=== PATIENT | female | born 1960 | race Caucasian/White ===

== ENCOUNTER 2020-01-13 09:42 | Outpatient (REF) | payer OTHER, SELFPAY ==
--- NOTE | 2020-01-13 11:35 | XR_ITS ---
EXAMINATION: XR THORACIC SPINE CLINICAL INFORMATION: Pain in the thoracic spine COMPARISON: Cervical spine x-rays of 10/13/2019 TECHNIQUE: 3 views of the thoracic spine were obtained. FINDINGS: Vertebral body heights and alignment are maintained. Mild narrowing of the multiple intervertebral disc spaces is noted in the mid to lower thoracic spine with the small anterior endplate hypertrophic osteophytes. The posterior elements appear intact. No evidence of suspicious lytic or blastic osseous lesions. Paraspinous soft tissues appear unremarkable. Visualized lungs are clear. Cardiomediastinal silhouette is normal. IMPRESSION: Mild mid and lower thoracic spondylosis. No evidence of acute compression fracture or suspicious osseous lesion.
[2020-01-13 11:55] LABS: MANUAL DIFF FLAG NO
[2020-01-13 12:06] LABS: Basophils Percent Auto 0.4 % (0-2); Eosinophils Absolute Auto 0.2 X10*3/uL (0.0-0.4); Eosinophils Percent Auto 1.9 % (0-4); Hematocrit 38.3 % (37-47); Hemoglobin 11.8 g/dl (12.0-16.0); Imm Gran Abs Auto 0.04 X10*3/uL (0.00-0.03); Imm Gran Pct Auto 0.4 % (0.0-0.4); Lymphocytes Absolute Auto 1.5 X10*3/uL (1.2-4.9); Lymphocytes Percent Auto 16.4 % (20-40); Mean Corpuscular HGB Conc 30.8 g/dl (31.0-35.0); Mean Corpuscular Hemoglobin 29.2 pg (27.0-33.0); Mean Corpuscular Volume 94.8 fL (80-98); Mean Platelet Volume 10.7 fL (9.4-12.3); Monocytes Absolute Auto 0.5 X10*3/uL (0.1-1.2); Monocytes Percent Auto 5.4 % (2-11); Neutrophils Absolute Auto 7.1 X10*3/uL (2.0-8.3); Neutrophils Percent Auto 75.5 % (45-73); Platelet Count 263 X10*3/uL (160-400); Red Blood Count 4.04 X10*6/uL (4.20-5.50); Red Cell Distribution Width 13.7 % (11.0-16.0); White Blood Count 9.3 X10*3/uL (4.8-10.8)
[2020-01-13 12:32] LABS: Alanine Aminotransferase 22 U/L (0-31); Albumin Level 4.4 g/dL (3.5-5.0); Alkaline Phosphatase 95 U/L (39-117); Anion Gap 16 (12-20); Aspartate Amino Transferase 25 U/L (5-31); Bilirubin Total 0.3 mg/dL (0.0-1.0); Blood Urea Nitrogen 14 mg/dL (9-16); Calcium 9.6 mg/dL (8.4-10.2); Carbon Dioxide 28 mmol/L (22-29); Chloride 108 mmol/L (96-108); Estimated Glomerular Filt Rate > 60; Glucose Random 94 mg/dL (60-115); Potassium 5.1 mmol/l (3.3-5.1); Sodium 147 mmol/L (135-145); Total Protein 7.3 g/dL (6.5-8.0)
[2020-01-13 13:10] LABS: Erythrocyte Sedimentation Rate 18 MM/HR (0-20)
== END 2020-01-13 09:43 | disposition home or self-care (01) ==
LOC: HO.LAB 09:42
PROVIDERS: PCP Family Medicine; Referring Provider Family Medicine; Visit Provider Student in an Organized Health Care Education/Training Program
DX: M05.9 Rheumatoid arthritis with rheumatoid factor, unspecified (principal); M54.6 Pain in thoracic spine; Z79.899 Other long term (current) drug therapy
CPT/HCPCS: 36415; 72072; 80053; 85025; 85652; 86140; 99214

== ENCOUNTER → 2020-04-15 11:02 | Outpatient (BNVA) | payer OTHER, SELFPAY | PROVIDERS: PCP Family Medicine; Referring Provider Family Medicine; Visit Provider Student in an Organized Health Care Education/Training Program | DX: Z13.89 Encounter for screening for other disorder (principal) | CPT/HCPCS: 99212 ==

== ENCOUNTER 2020-05-25 11:09 | Outpatient (REF) | payer OTHER, SELFPAY ==
[2020-05-25 11:44] LABS: MANUAL DIFF FLAG NO
[2020-05-25 11:51] LABS: Basophils Percent Auto 0.3 % (0-2); Eosinophils Absolute Auto 0.2 X10*3/uL (0.0-0.4); Eosinophils Percent Auto 2.2 % (0-4); Hematocrit 38.8 % (37-47); Hemoglobin 12.1 g/dl (12.0-16.0); Imm Gran Abs Auto 0.07 X10*3/uL (0.00-0.03); Imm Gran Pct Auto 0.8 % (0.0-0.4); Lymphocytes Absolute Auto 1.7 X10*3/uL (1.2-4.9); Lymphocytes Percent Auto 19.1 % (20-40); Mean Corpuscular HGB Conc 31.2 g/dl (31.0-35.0); Mean Corpuscular Hemoglobin 29.2 pg (27.0-33.0); Mean Corpuscular Volume 93.7 fL (80-98); Mean Platelet Volume 10.2 fL (9.4-12.3); Monocytes Absolute Auto 0.5 X10*3/uL (0.1-1.2); Monocytes Percent Auto 5.3 % (2-11); Neutrophils Absolute Auto 6.6 X10*3/uL (2.0-8.3); Neutrophils Percent Auto 72.3 % (45-73); Platelet Count 260 X10*3/uL (160-400); Red Blood Count 4.14 X10*6/uL (4.20-5.50); Red Cell Distribution Width 14.7 % (11.0-16.0); White Blood Count 9.1 X10*3/uL (4.8-10.8)
[2020-05-25 12:23] LABS: Alanine Aminotransferase 27 U/L (0-31); Albumin Level 4.3 g/dL (3.5-5.0); Alkaline Phosphatase 111 U/L (39-117); Anion Gap 12 (12-20); Aspartate Amino Transferase 29 U/L (5-31); Bilirubin Total 0.5 mg/dL (0.0-1.0); Blood Urea Nitrogen 14 mg/dL (9-16); Calcium 9.4 mg/dL (8.4-10.2); Carbon Dioxide 29 mmol/L (22-29); Chloride 101 mmol/L (96-108); Estimated Glomerular Filt Rate > 60; Glucose Random 92 mg/dL (60-115); Potassium 4.4 mmol/L (3.3-5.1); Sodium 138 mmol/L (135-145); Total Protein 7.3 g/dL (6.5-8.0)
[2020-05-25 12:46] LABS: Erythrocyte Sedimentation Rate 16 MM/HR (0-20)
== END 2020-05-25 11:10 | disposition home or self-care (01) ==
LOC: HO.LAB 11:09
PROVIDERS: PCP Family Medicine; Visit Provider Student in an Organized Health Care Education/Training Program
DX: M05.9 Rheumatoid arthritis with rheumatoid factor, unspecified (principal)
CPT/HCPCS: 36415; 80053; 85025; 85652; 86140

== ENCOUNTER 2020-09-02 10:41 | Outpatient (REF) | payer OTHER, SELFPAY ==
[2020-09-02 12:26] LABS: MANUAL DIFF FLAG NO
[2020-09-02 12:30] LABS: Basophils Percent Auto 0.4 % (0-2); Eosinophils Absolute Auto 0.2 X10*3/uL (0.0-0.4); Eosinophils Percent Auto 2.2 % (0-4); Hematocrit 37.8 % (37-47); Hemoglobin 11.6 g/dl (12.0-16.0); Imm Gran Abs Auto 0.04 X10*3/uL (0.00-0.03); Imm Gran Pct Auto 0.4 % (0.0-0.4); Lymphocytes Absolute Auto 1.6 X10*3/uL (1.2-4.9); Lymphocytes Percent Auto 17.4 % (20-40); Mean Corpuscular HGB Conc 30.7 g/dl (31.0-35.0); Mean Corpuscular Hemoglobin 28.2 pg (27.0-33.0); Mean Platelet Volume 10.4 fL (9.4-12.3); Monocytes Absolute Auto 0.3 X10*3/uL (0.1-1.2); Monocytes Percent Auto 3.7 % (2-11); Neutrophils Absolute Auto 6.9 X10*3/uL (2.0-8.3); Neutrophils Percent Auto 75.9 % (45-73); Platelet Count 297 X10*3/uL (160-400); Red Blood Count 4.11 X10*6/uL (4.20-5.50); Red Cell Distribution Width 13.7 % (11.0-16.0); White Blood Count 9.1 X10*3/uL (4.8-10.8)
[2020-09-02 13:44] LABS: Alanine Aminotransferase 33 U/L (0-31); Albumin Level 4.3 g/dL (3.5-5.0); Alkaline Phosphatase 97 U/L (39-117); Anion Gap 13 (12-20); Aspartate Amino Transferase 42 U/L (5-31); Bilirubin Total 0.3 mg/dL (0.0-1.0); Blood Urea Nitrogen 11 mg/dL (9-16); C Reactive Protein 0.63 mg/dL (< or = 0.50); Carbon Dioxide 26 mmol/L (22-29); Chloride 104 mmol/L (96-108); Estimated Glomerular Filt Rate > 60; Glucose Random 110 mg/dL (60-115); Potassium 4.3 mmol/L (3.3-5.1); Sodium 139 mmol/L (135-145); Total Protein 7.2 g/dL (6.5-8.0)
[2020-09-02 14:03] LABS: Erythrocyte Sedimentation Rate 20 MM/HR (0-20)
== END 2020-09-02 10:42 | disposition home or self-care (01) ==
LOC: HO.LAB 10:41
PROVIDERS: PCP Family Medicine; Visit Provider Student in an Organized Health Care Education/Training Program
DX: M05.9 Rheumatoid arthritis with rheumatoid factor, unspecified (principal)
CPT/HCPCS: 36415; 80053; 85025; 85652; 86140; 99212

== ENCOUNTER 2020-12-09 10:32 | Outpatient (REF) | payer OTHER, SELFPAY ==
[2020-12-09 12:10] LABS: MANUAL DIFF FLAG NO
[2020-12-09 12:13] LABS: Basophils Absolute Auto 0.1 X10*3/uL (0.0-0.2); Basophils Percent Auto 0.5 % (0-2); Eosinophils Absolute Auto 0.2 X10*3/uL (0.0-0.4); Eosinophils Percent Auto 2.2 % (0-4); Hematocrit 39.5 % (37-47); Hemoglobin 12.2 g/dl (12.0-16.0); Imm Gran Abs Auto 0.04 X10*3/uL (0.00-0.03); Imm Gran Pct Auto 0.4 % (0.0-0.4); Lymphocytes Absolute Auto 1.8 X10*3/uL (1.2-4.9); Lymphocytes Percent Auto 18.5 % (20-40); Mean Corpuscular HGB Conc 30.9 g/dl (31.0-35.0); Mean Corpuscular Hemoglobin 28.4 pg (27.0-33.0); Mean Corpuscular Volume 91.9 fL (80-98); Mean Platelet Volume 10.3 fL (9.4-12.3); Monocytes Absolute Auto 0.4 X10*3/uL (0.1-1.2); Neutrophils Percent Auto 74.4 % (45-73); Platelet Count 305 X10*3/uL (160-400); Red Cell Distribution Width 15.3 % (11.0-16.0); White Blood Count 9.5 X10*3/uL (4.8-10.8)
[2020-12-09 13:00] LABS: Erythrocyte Sedimentation Rate 17 MM/HR (0-20)
[2020-12-09 13:25] LABS: Alanine Aminotransferase 33 U/L (0-31); Albumin Level 4.5 g/dL (3.5-5.0); Alkaline Phosphatase 105 U/L (39-117); Anion Gap 13 (12-20); Aspartate Amino Transferase 39 U/L (5-31); Bilirubin Total 0.4 mg/dL (0.0-1.0); Blood Urea Nitrogen 13 mg/dL (9-16); C Reactive Protein 0.82 mg/dL (< or = 0.50); Carbon Dioxide 29 mmol/L (22-29); Chloride 105 mmol/L (96-108); Estimated Glomerular Filt Rate > 60; Glucose Random 113 mg/dL (60-115); Iron 86 mcg/dL (30-160); Percent Iron Saturation 22 % (15-50); Potassium 4.9 mmol/L (3.3-5.1); Sodium 142 mmol/L (135-145); Total Iron Binding Capacity 397 mcg/dL (228-428); Total Protein 7.4 g/dL (6.5-8.0); Unsaturated Iron Binding 311 ug/dL
[2020-12-09 13:49] LABS: Ferritin 53 ng/mL (10-250)
== END 2020-12-09 10:33 | disposition home or self-care (01) ==
LOC: HO.LAB 10:32
PROVIDERS: PCP Family Medicine; Visit Provider Nurse Practitioner Family
DX: M05.9 Rheumatoid arthritis with rheumatoid factor, unspecified (principal); M54.6 Pain in thoracic spine; F41.9 Anxiety disorder, unspecified; Z79.899 Other long term (current) drug therapy
CPT/HCPCS: 36415; 80053; 82728; 83540; 85025; 85652; 86140; 99212

== ENCOUNTER 2021-05-26 11:02 | Outpatient (REF) | payer OTHER, SELFPAY ==
--- NOTE | ~2021-05-26 | XR_ITS ---
EXAMINATION: XR CERVICAL SPINE CLINICAL INFORMATION: Cervalgia. COMPARISON: Cervical spine study 10/13/2019. TECHNIQUE: 3 views of the cervical spine were obtained. FINDINGS: Again noted are moderate degenerative changes present at C4-C5 and C6-C7 with disc space narrowing, endplate sclerosis and osteophyte formation. No prevertebral soft tissue swelling or bony destructive lesions are seen. Again noted is mild reversal of the normal cervical lordosis. The lung apices appear unremarkable. XR/XR cervical spine 2V IMPRESSION: Unchanged moderate degenerative changes at C4-C5 and C6-C7.
[2021-05-26 12:21] LABS: MANUAL DIFF FLAG NO
[2021-05-26 13:18] LABS: Basophils Percent Auto 0.4 % (0-2); Eosinophils Absolute Auto 0.2 X10*3/uL (0.0-0.4); Eosinophils Percent Auto 2.1 % (0-4); Hematocrit 39.8 % (37.0-47.0); Hemoglobin 12.1 g/dl (12.0-16.0); Imm Gran Abs Auto 0.04 X10*3/uL (0.00-0.03); Imm Gran Pct Auto 0.4 % (0.0-0.4); Lymphocytes Absolute Auto 1.8 X10*3/uL (1.2-4.9); Lymphocytes Percent Auto 19.4 % (20-40); Mean Corpuscular HGB Conc 30.4 g/dl (31.0-35.0); Mean Corpuscular Hemoglobin 28.1 pg (27.0-33.0); Mean Corpuscular Volume 92.3 fL (80.0-98.0); Mean Platelet Volume 10.6 fL (9.4-12.3); Monocytes Absolute Auto 0.4 X10*3/uL (0.1-1.2); Monocytes Percent Auto 4.8 % (2-11); Neutrophils Absolute Auto 6.7 x10*3/uL (2.0-8.3); Neutrophils Percent Auto 72.9 % (45-73); Platelet Count 270 X10*3/uL (160-400); Red Blood Count 4.31 X10*6/uL (4.20-5.50); Red Cell Distribution Width 15.2 % (11.0-16.0); White Blood Count 9.2 X10*3/uL (4.8-10.8)
[2021-05-26 13:44] LABS: Alanine Aminotransferase 27 U/L (0-31); Albumin Level 4.3 g/dL (3.5-5.0); Alkaline Phosphatase 106 U/L (39-117); Anion Gap 11 (12-20); Aspartate Amino Transferase 35 U/L (5-31); Bilirubin Total 0.4 mg/dL (0.0-1.0); Blood Urea Nitrogen 14 mg/dL (9-16); C Reactive Protein 0.84 mg/dL (< or = 0.50); Calcium 10.4 mg/dL (8.4-10.2); Carbon Dioxide 31 mmol/L (22-29); Chloride 103 mmol/L (96-108); Estimated Glomerular Filt Rate > 60; Glucose Random 102 mg/dL (60-115); Potassium 5.3 mmol/L (3.3-5.1); Sodium 140 mmol/L (135-145); Total Protein 7.3 g/dL (6.5-8.0)
[2021-05-26 14:00] LABS: Erythrocyte Sedimentation Rate 16 MM/HR (0-20)
== END 2021-05-26 11:03 | disposition home or self-care (01) ==
LOC: HO.XRAY 11:02
PROVIDERS: PCP Family Medicine; Visit Provider Nurse Practitioner Family
DX: M05.9 Rheumatoid arthritis with rheumatoid factor, unspecified (principal); F41.9 Anxiety disorder, unspecified; M54.6 Pain in thoracic spine; M54.2 Cervicalgia; Z79.899 Other long term (current) drug therapy
CPT/HCPCS: 36415; 72040; 80053; 85025; 85652; 86140; 99212

== ENCOUNTER 2021-05-31 17:07 | Outpatient (REF) | payer OTHER, SELFPAY ==
[2021-05-31 17:17] LABS: MANUAL DIFF FLAG NO
[2021-05-31 18:03] LABS: Basophils Absolute Auto 0.1 X10*3/uL (0.0-0.2); Basophils Percent Auto 0.4 % (0-2); Eosinophils Absolute Auto 0.3 X10*3/uL (0.0-0.4); Eosinophils Percent Auto 2.4 % (0-4); Hemoglobin 12.4 g/dl (12.0-16.0); Imm Gran Abs Auto 0.06 X10*3/uL (0.00-0.03); Imm Gran Pct Auto 0.5 % (0.0-0.4); Lymphocytes Absolute Auto 2.1 X10*3/uL (1.2-4.9); Mean Corpuscular HGB Conc 30.2 g/dl (31.0-35.0); Mean Corpuscular Hemoglobin 28.6 pg (27.0-33.0); Mean Corpuscular Volume 94.7 fL (80.0-98.0); Mean Platelet Volume 10.8 fL (9.4-12.3); Monocytes Absolute Auto 0.5 X10*3/uL (0.1-1.2); Monocytes Percent Auto 4.8 % (2-11); Neutrophils Absolute Auto 8.2 x10*3/uL (2.0-8.3); Neutrophils Percent Auto 72.9 % (45-73); Platelet Count 271 X10*3/uL (160-400); Red Blood Count 4.33 X10*6/uL (4.20-5.50); White Blood Count 11.2 X10*3/uL (4.8-10.8)
[2021-05-31 18:08] LABS: Alanine Aminotransferase 27 U/L (0-31); Albumin Level 4.3 g/dL (3.5-5.0); Alkaline Phosphatase 124 U/L (39-117); Anion Gap 15 (12-20); Aspartate Amino Transferase 30 U/L (5-31); Bilirubin Total 0.3 mg/dL (0.0-1.0); Blood Urea Nitrogen 12 mg/dL (9-16); C Reactive Protein 2.91 mg/dL (< or = 0.50); Calcium 9.8 mg/dL (8.4-10.2); Carbon Dioxide 29 mmol/L (22-29); Chloride 102 mmol/L (96-108); Estimated Glomerular Filt Rate 60; Glucose Random 189 mg/dL (60-115); Potassium 5.2 mmol/L (3.3-5.1); Sodium 141 mmol/L (135-145); Total Protein 7.5 g/dL (6.5-8.0)
[2021-05-31 18:20] LABS: Erythrocyte Sedimentation Rate 19 MM/HR (0-20)
[2021-06-02 13:46] LABS: Calcium (PTHI) 9.8 mg/dL (8.6-10.4); PTHI 160 pg/mL (14-64)
== END 2021-05-31 17:08 | disposition home or self-care (01) ==
LOC: HO.LAB 17:07
PROVIDERS: Visit Provider Nurse Practitioner Family
DX: M05.9 Rheumatoid arthritis with rheumatoid factor, unspecified (principal); E83.52 Hypercalcemia
CPT/HCPCS: 36415; 80053; 83970; 85025; 85652; 86140

== ENCOUNTER 2021-06-06 17:11 | Outpatient (REF) | payer OTHER, SELFPAY ==
[2021-06-06 17:23] LABS: MANUAL DIFF FLAG NO
[2021-06-06 17:44] LABS: Basophils Percent Auto 0.4 % (0-2); Eosinophils Absolute Auto 0.3 X10*3/uL (0.0-0.4); Eosinophils Percent Auto 2.9 % (0-4); Hematocrit 38.8 % (37.0-47.0); Hemoglobin 11.8 g/dl (12.0-16.0); Imm Gran Abs Auto 0.05 X10*3/uL (0.00-0.03); Imm Gran Pct Auto 0.5 % (0.0-0.4); Lymphocytes Percent Auto 19.4 % (20-40); Mean Corpuscular HGB Conc 30.4 g/dl (31.0-35.0); Mean Corpuscular Hemoglobin 28.3 pg (27.0-33.0); Mean Platelet Volume 10.4 fL (9.4-12.3); Monocytes Absolute Auto 0.5 X10*3/uL (0.1-1.2); Neutrophils Absolute Auto 7.4 x10*3/uL (2.0-8.3); Neutrophils Percent Auto 71.8 % (45-73); Platelet Count 245 X10*3/uL (160-400); Red Blood Count 4.17 X10*6/uL (4.20-5.50); Red Cell Distribution Width 15.1 % (11.0-16.0); White Blood Count 10.4 X10*3/uL (4.8-10.8)
[2021-06-06 18:13] LABS: Alanine Aminotransferase 32 U/L (0-31); Albumin Level 4.2 g/dL (3.5-5.0); Alkaline Phosphatase 105 U/L (39-117); Anion Gap 15 (12-20); Aspartate Amino Transferase 36 U/L (5-31); Bilirubin Total 0.2 mg/dL (0.0-1.0); Blood Urea Nitrogen 9 mg/dL (9-16); C Reactive Protein 0.91 mg/dL (< or = 0.50); Carbon Dioxide 29 mmol/L (22-29); Chloride 104 mmol/L (96-108); Estimated Glomerular Filt Rate > 60; Glucose Random 120 mg/dL (60-115); Potassium 4.7 mmol/L (3.3-5.1); Sodium 143 mmol/L (135-145); Total Protein 7.3 g/dL (6.5-8.0)
[2021-06-06 18:28] LABS: Erythrocyte Sedimentation Rate 18 MM/HR (0-20)
[2021-06-07 14:21] LABS: Calcium (PTHI) 9.7 mg/dL (8.6-10.4); PTHI 107 pg/mL (16-77)
== END 2021-06-06 17:12 | disposition home or self-care (01) ==
LOC: HO.LAB 17:11
PROVIDERS: Visit Provider Nurse Practitioner Family
DX: M05.9 Rheumatoid arthritis with rheumatoid factor, unspecified (principal); R79.82 Elevated C-reactive protein (CRP); E34.9 Endocrine disorder, unspecified
CPT/HCPCS: 36415; 80053; 83970; 85025; 85652; 86140

== ENCOUNTER → 2021-07-07 10:47 | Outpatient (BNVA) | payer OTHER, SELFPAY | PROVIDERS: PCP Internal Medicine; Visit Provider Internal Medicine Endocrinology, Diabetes & Metabolism | DX: E21.3 Hyperparathyroidism, unspecified (principal) | CPT/HCPCS: 99202 ==

== ENCOUNTER 2021-10-13 10:37 | Outpatient (REF) | payer MEDICARE, MEDICAID, SELFPAY ==
[2021-10-13 11:24] LABS: Alanine Aminotransferase 25 U/L (0-31); Albumin Level 4.4 g/dL (3.5-5.0); Aspartate Amino Transferase 34 U/L (5-31); Calcium 9.8 mg/dL (8.4-10.2); Estimated Glomerular Filt Rate > 60
[2021-10-13 11:44] LABS: Vitamin D 25-OH Total 26.5 ng/mL (>30)
[2021-10-13 12:45] LABS: Creatinine, mg/dL 58.25
[2021-10-13 13:10] LABS: Total Volume 24 Hour Urine 1650 mL
[2021-10-16 16:26] LABS: Calcium, 24 Hr Urine 167 mg/24 h; Calcium/Creatinine Ratio 171 mg/g creat (30-275); Creatinine 24Hr Urine 0.97 g/24 h (0.50-2.15)
[2021-10-17 15:52] LABS: Calcium (PTHI) 9.5 mg/dL (8.6-10.4); PTHI 93 pg/mL (16-77)
== END 2021-10-13 10:38 | disposition home or self-care (01) ==
LOC: HO.LAB 10:37
PROVIDERS: Internal Medicine Endocrinology, Diabetes & Metabolism; PCP Internal Medicine; Visit Provider Nurse Practitioner Family
DX: E21.3 Hyperparathyroidism, unspecified (principal); M05.9 Rheumatoid arthritis with rheumatoid factor, unspecified; M54.2 Cervicalgia; M54.6 Pain in thoracic spine; F41.9 Anxiety disorder, unspecified; Z79.899 Other long term (current) drug therapy
CPT/HCPCS: 36415; 82040; 82306; 82310; 82340; 82565; 82570; 83970; 84450; 84460; Q3014

== ENCOUNTER 2021-10-27 11:13 | Outpatient (REF) | payer MEDICARE, MEDICAID, SELFPAY ==
[2021-10-27 11:32] LABS: MANUAL DIFF FLAG NO
[2021-10-27 12:16] LABS: Basophils Absolute Auto 0.1 X10*3/uL (0.0-0.2); Basophils Percent Auto 0.6 % (0-2); Eosinophils Absolute Auto 0.2 X10*3/uL (0.0-0.4); Eosinophils Percent Auto 1.8 % (0-4); Hematocrit 39.5 % (37.0-47.0); Hemoglobin 12.2 g/dl (12.0-16.0); Imm Gran Abs Auto 0.04 X10*3/uL (0.00-0.03); Imm Gran Pct Auto 0.4 % (0.0-0.4); Lymphocytes Absolute Auto 1.5 X10*3/uL (1.2-4.9); Lymphocytes Percent Auto 16.4 % (20-40); Mean Corpuscular HGB Conc 30.9 g/dl (31.0-35.0); Mean Corpuscular Hemoglobin 28.3 pg (27.0-33.0); Mean Corpuscular Volume 91.6 fL (80.0-98.0); Mean Platelet Volume 10.2 fL (9.4-12.3); Monocytes Absolute Auto 0.5 X10*3/uL (0.1-1.2); Monocytes Percent Auto 5.8 % (2-11); Neutrophils Absolute Auto 6.8 x10*3/uL (2.0-8.3); Platelet Count 279 X10*3/uL (160-400); Red Blood Count 4.31 X10*6/uL (4.20-5.50); Red Cell Distribution Width 14.6 % (11.0-16.0)
[2021-10-27 12:51] LABS: Alanine Aminotransferase 27 U/L (0-31); Aspartate Amino Transferase 33 U/L (5-31); C Reactive Protein 1.17 mg/dL (< or = 0.50); Estimated Glomerular Filt Rate > 60
[2021-10-27 13:05] LABS: Erythrocyte Sedimentation Rate 21 MM/HR (0-20)
== END 2021-10-27 11:14 | disposition home or self-care (01) ==
LOC: HO.LAB 11:13
PROVIDERS: PCP Internal Medicine; Visit Provider Nurse Practitioner Family
DX: M05.9 Rheumatoid arthritis with rheumatoid factor, unspecified (principal); Z79.899 Other long term (current) drug therapy
CPT/HCPCS: 36415; 82565; 84450; 84460; 85025; 85652; 86140

== ENCOUNTER 2022-01-26 10:25 | Outpatient (REF) | payer MEDICARE, MEDICAID, SELFPAY ==
[2022-01-26 10:35] LABS: MANUAL DIFF FLAG NO
[2022-01-26 11:00] LABS: Basophils Absolute Auto 0.1 X10*3/uL (0.0-0.2); Basophils Percent Auto 0.6 % (0-2); Eosinophils Absolute Auto 0.1 X10*3/uL (0.0-0.4); Eosinophils Percent Auto 1.4 % (0-4); Hematocrit 41.5 % (37.0-47.0); Hemoglobin 12.9 g/dl (12.0-16.0); Imm Gran Abs Auto 0.06 X10*3/uL (0.00-0.03); Imm Gran Pct Auto 0.6 % (0.0-0.4); Lymphocytes Absolute Auto 1.8 X10*3/uL (1.2-4.9); Lymphocytes Percent Auto 17.8 % (20-40); Mean Corpuscular HGB Conc 31.1 g/dl (31.0-35.0); Mean Corpuscular Hemoglobin 28.5 pg (27.0-33.0); Mean Corpuscular Volume 91.6 fL (80.0-98.0); Mean Platelet Volume 10.5 fL (9.4-12.3); Monocytes Absolute Auto 0.6 X10*3/uL (0.1-1.2); Monocytes Percent Auto 5.6 % (2-11); Neutrophils Absolute Auto 7.3 x10*3/uL (2.0-8.3); Platelet Count 285 X10*3/uL (160-400); Red Blood Count 4.53 X10*6/uL (4.20-5.50); Red Cell Distribution Width 14.7 % (11.0-16.0); White Blood Count 9.9 X10*3/uL (4.8-10.8)
[2022-01-26 11:27] LABS: Alanine Aminotransferase 17 U/L (0-31); Aspartate Amino Transferase 28 U/L (5-31); C Reactive Protein 0.97 mg/dL (< or = 0.50); Estimated Glomerular Filt Rate > 60
[2022-01-26 11:40] LABS: Erythrocyte Sedimentation Rate 19 MM/HR (0-20)
== END 2022-01-26 10:26 | disposition home or self-care (01) ==
LOC: HO.LAB 10:25
PROVIDERS: PCP General Practice; Visit Provider Nurse Practitioner Family
DX: M05.9 Rheumatoid arthritis with rheumatoid factor, unspecified (principal); M54.6 Pain in thoracic spine; M54.2 Cervicalgia; F41.9 Anxiety disorder, unspecified; M25.562 Pain in left knee; Z79.899 Other long term (current) drug therapy
CPT/HCPCS: 36415; 82565; 84450; 84460; 85025; 85652; 86140; 99212

== ENCOUNTER 2022-06-08 10:46 | Outpatient (REF) | payer MEDICARE, MEDICAID, SELFPAY ==
[2022-06-08 11:05] LABS: MANUAL DIFF FLAG NO
[2022-06-08 11:51] LABS: Basophils Absolute Auto 0.1 X10*3/uL (0.0-0.2); Basophils Percent Auto 0.5 % (0-2); Eosinophils Absolute Auto 0.2 X10*3/uL (0.0-0.4); Hematocrit 40.5 % (37.0-47.0); Hemoglobin 12.7 g/dl (12.0-16.0); Imm Gran Abs Auto 0.06 X10*3/uL (0.00-0.03); Imm Gran Pct Auto 0.7 % (0.0-0.4); Lymphocytes Absolute Auto 1.7 X10*3/uL (1.2-4.9); Lymphocytes Percent Auto 18.2 % (20-40); Mean Corpuscular HGB Conc 31.4 g/dl (31.0-35.0); Mean Corpuscular Hemoglobin 28.3 pg (27.0-33.0); Mean Corpuscular Volume 90.4 fL (80.0-98.0); Mean Platelet Volume 10.9 fL (9.4-12.3); Monocytes Absolute Auto 0.6 X10*3/uL (0.1-1.2); Neutrophils Absolute Auto 6.7 x10*3/uL (2.0-8.3); Neutrophils Percent Auto 72.6 % (45-73); Platelet Count 241 X10*3/uL (160-400); Red Blood Count 4.48 X10*6/uL (4.20-5.50); Red Cell Distribution Width 14.6 % (11.0-16.0); White Blood Count 9.2 X10*3/uL (4.8-10.8)
[2022-06-08 12:31] LABS: Alanine Aminotransferase 27 U/L (0-31); Aspartate Amino Transferase 32 U/L (5-31); C Reactive Protein 1.01 mg/dL (< or = 0.50); Estimated Glomerular Filt Rate > 60
[2022-06-08 12:41] LABS: Erythrocyte Sedimentation Rate 23 MM/HR (0-20)
[2022-06-08 12:48] LABS: Vitamin D 25-OH Total 55.2 ng/mL (>30)
[2022-06-11 14:04] LABS: Calcium (PTHI) 9.8 mg/dL (8.6-10.4); PTHI 58 pg/mL (16-77)
== END 2022-06-08 10:47 | disposition home or self-care (01) ==
LOC: HO.LAB 10:46
PROVIDERS: Internal Medicine Endocrinology, Diabetes & Metabolism; PCP General Practice; Visit Provider Nurse Practitioner Family
DX: M05.9 Rheumatoid arthritis with rheumatoid factor, unspecified (principal); M54.2 Cervicalgia; E21.3 Hyperparathyroidism, unspecified; Z79.899 Other long term (current) drug therapy
CPT/HCPCS: 36415; 82306; 82565; 83970; 84450; 84460; 85025; 85652; 86140; 99212

== ENCOUNTER 2022-08-04 09:26 | Outpatient (REF) | payer MEDICARE, MEDICAID, SELFPAY ==
[2022-08-04 09:40] LABS: MANUAL DIFF FLAG NO
[2022-08-04 10:34] LABS: Basophils Absolute Auto 0.1 X10*3/uL (0.0-0.2); Basophils Percent Auto 0.6 % (0-2); Eosinophils Absolute Auto 0.2 X10*3/uL (0.0-0.4); Eosinophils Percent Auto 1.8 % (0-4); Hematocrit 40.8 % (37.0-47.0); Hemoglobin 12.6 g/dl (12.0-16.0); Imm Gran Abs Auto 0.03 X10*3/uL (0.00-0.03); Imm Gran Pct Auto 0.3 % (0.0-0.4); Lymphocytes Absolute Auto 1.7 X10*3/uL (1.2-4.9); Lymphocytes Percent Auto 19.6 % (20-40); Mean Corpuscular HGB Conc 30.9 g/dl (31.0-35.0); Mean Corpuscular Hemoglobin 27.8 pg (27.0-33.0); Mean Corpuscular Volume 90.1 fL (80.0-98.0); Mean Platelet Volume 10.9 fL (9.4-12.3); Monocytes Absolute Auto 0.5 X10*3/uL (0.1-1.2); Monocytes Percent Auto 5.6 % (2-11); Neutrophils Absolute Auto 6.3 x10*3/uL (2.0-8.3); Neutrophils Percent Auto 72.1 % (45-73); Platelet Count 236 X10*3/uL (160-400); Red Blood Count 4.53 X10*6/uL (4.20-5.50); Red Cell Distribution Width 14.6 % (11.0-16.0); White Blood Count 8.8 X10*3/uL (4.8-10.8)
[2022-08-04 10:59] LABS: Alanine Aminotransferase 23 U/L (0-31); Aspartate Amino Transferase 32 U/L (5-31); C Reactive Protein 0.52 mg/dL (< or = 0.50); Estimated Glomerular Filt Rate 57
[2022-08-04 11:32] LABS: Erythrocyte Sedimentation Rate 16 MM/HR (0-20)
== END 2022-08-04 09:27 | disposition home or self-care (01) ==
LOC: HO.LAB 09:26
PROVIDERS: PCP General Practice; Visit Provider Nurse Practitioner Family
DX: M05.9 Rheumatoid arthritis with rheumatoid factor, unspecified (principal); Z79.899 Other long term (current) drug therapy
CPT/HCPCS: 36415; 82565; 84450; 84460; 85025; 85652; 86140

== ENCOUNTER 2022-08-24 10:33 | Outpatient (REF) | payer MEDICARE, MEDICAID, SELFPAY ==
[2022-08-24 13:33] LABS: Alanine Aminotransferase 23 U/L (0-31); Aspartate Amino Transferase 31 U/L (5-31)
== END 2022-08-24 10:34 | disposition home or self-care (01) ==
LOC: HO.LAB 10:33
PROVIDERS: Visit Provider Nurse Practitioner Family
DX: Z79.899 Other long term (current) drug therapy (principal)
CPT/HCPCS: 36415; 84450; 84460

== ENCOUNTER 2022-10-12 11:43 | Outpatient (AMB) | payer MEDICARE, MEDICAID, SELFPAY ==
[2022-10-12 11:44] VITALS: BP 132/76; PULSE 87; TEMP 36.4; O2SAT 93; BMI 30.4
--- NOTE | 2022-10-12 11:44 | A.OFFVIS_ITS ---
Intake Vital Signs 10/12/22 11:44 Height 5 ft 2 in Weight 166 lb 7.184 oz BMI 30.4 BP 132/76 Blood Pressure Location Rt brachial Position Sitting Pulse 87 Pulse Source Pulse Oximeter Temp 97.6 F Temp Source Skin Pulse Oximetry (%) 93 Intake Visit Reasons: Rheumatoid arthritis Intake Note: Pt seen today for RA follow up. 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 Accompanied by: Sister Allergies hydroxychloroquine [Plaquenil] Allergy (Intermediate, Verified 10/12/22 11:46) diarrhea ibuprofen Adverse Reaction (Mild, Verified 10/12/22 11:46) Nausea and Vomiting naproxen Adverse Reaction (Unknown, Verified 10/12/22 11:46) Gastrointestinal Upset Medication List - Last Reconciled 10/12/22 by Breana Dow MD [id number] 250-250-65 mg (Excedrin Migraine) 1 tab PO Q4-6H PRN cholecalciferol (vitamin D3) 100 mcg PO DAILY folic acid 1 mg PO DAILY gabapentin 100 mg PO Q8H methotrexate sodium 10 mg (4 x 2.5 mg) PO QWEEK omeprazole 20 mg PO DAILY sertraline 200 mg PO DAILY tizanidine 4 mg PO BEDTIME [Tylenol Muscle Aches & Pain PO DAILY PRN] HPI HPI Comments History of Present Illness Details 61yoF presents for follow-up of seropositive RA (RF+ CCP-). Last seen by Analia Smith 05/2022. On 4 tabs methotrexate weekly and folic acid daily. Over the last week or so patient has been having neck pain and spasm worse in the right side, it radiates to her upper back and shoulder. Patient states that she sits in an awkward position at home doing art throughout the day. Using a heating pad which provided some relief. No side effects with methotrexate. Denies any pain or swelling of her hands ankles knees or feet. [facility] Medical History GERD (gastroesophageal reflux disease) Hyperparathyroidism Hypoglycemia Neck pain Osteoarthritis Seropositive rheumatoid arthritis Surgical History History of lumpectomy of left breast History of reversal of tubal ligation Hx of section Hx of tubal ligation S/P lateral meniscus repair of left knee Family History Mother No problems noted. Father No problems noted. Sister Diabetes Social History Household Members: None Housing: Apartment Alcohol intake: former Patient Tobacco Use Status: Former Tobacco user Tobacco use type: Cigarette Cigarettes Per Day: 30 Years Smoked: 20 e-Cigarette/Vaping Use: Never Used Review of Systems ENT Reports neck pain Musc Reports neck pain Physical Exam Vital Signs: Last Vital Signs Temp 97.6 F 10/12/22 11:44 Pulse 87 10/12/22 11:44 BP 132/76 10/12/22 11:44 Pulse Ox 93 10/12/22 11:44 BMI result Body Mass Index 30.4 Const General: cooperative, healthy appearing and comfortable Nutritional Appearance: overweight Orientation/consciousness: patient oriented x3 Limitations: no limitations HEENT Head: Yes normocephalic and Yes atraumatic Mouth: moist mucous membranes Neck Other: Mildly limited range of motion of her neck with rotation to the right. Pain with neck rotation to the left. Mild tenderness and pain along her neck and upper back on the right. Negative Spurling's test bilaterally Resp Effort & Inspection: normal respiratory effort and able to speak in complete sentences Auscultation: clear to auscultation bilaterally Cardio Rate: regular rate Rhythm: regular rhythm GI Inspection: No distended Palpation (GI): Soft to palpation and nontender Neuro General: patient oriented x3 Extrem Other: Mild puffiness of both wrists with no tenderness or pain with any range of motion. Few Heberden's nodes that are minimally tender. Assessment & Plan Assessment & Plan (1) Seropositive rheumatoid arthritis: Comment: dx 2019 +RF -ve CCP Code(s): M05.9 - Rheumatoid arthritis with rheumatoid factor, unspecified Plan: Seropositive RA well controlled on methotrexate 10 mg weekly and folic acid daily. No synovitis on exam. Most recent blood work unremarkable. Continue methotrexate 10 mg weekly and folic acid daily. Labs before next visit in 4 months (2) Neck pain: Code(s): M54.2 - Cervicalgia Plan: X-ray 05/2021 with unchanged moderate degenerative changes at C4-C5 and C6-C7. Patient's neck pain is likely mechanical in nature and related to underlying degenerative arthritis. Referred patient to physical therapy. Advised patient to increase her tizanidine to 2 tabs nightly for 3-4 days, reduced dose to 1 tab nightly if she gets groggy/dizzy. Try [id number] Salonpas patch (3) residential methotrexate user: Code(s): Z79.899 - Other intermediate (current) drug therapy Plan: Patient aware of potential?Side effects of methotrexate including oral ulcers, elevated LFTs, abdominal discomfort, and possible pancytopenias.? Will monitor patient? for side effects with frequent lab work. Advised patient to take folic acid daily to prevent complications of methotrexate. 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
== END 2022-10-12 12:17 | disposition home or self-care (01) ==
PROVIDERS: PCP General Practice; Visit Provider Student in an Organized Health Care Education/Training Program
DX: M05.79 Rheumatoid arthritis with rheumatoid factor of multiple sites without organ or systems involvement (principal); M54.2 Cervicalgia; Z79.899 Other long term (current) drug therapy
CPT/HCPCS: 99214

== ENCOUNTER → 2022-10-12 11:43 | Outpatient (BNVA) | payer MEDICARE, MEDICAID, SELFPAY | PROVIDERS: PCP General Practice; Visit Provider Student in an Organized Health Care Education/Training Program | DX: M05.9 Rheumatoid arthritis with rheumatoid factor, unspecified (principal); M54.2 Cervicalgia; Z79.631 Long term (current) use of antimetabolite agent | CPT/HCPCS: 99212 ==

== ENCOUNTER 2022-11-19 10:00 | Outpatient (RCR) | payer MEDICARE, MEDICAID, SELFPAY ==
--- NOTE | 2022-11-09 12:48 | MHC.PT.EP ---
[facility] [place] Office [place] Office [place] [facility] [address] Digna Perez [address] [phone] F: [phone] F: [phone] F: [phone] F: [phone] Physical Therapy Plan of Care Date of Evaluation: Date of Surgery: Diagnosis: cervicalgia (MD Dx) moderate degenerative changes at C4-C5 and C6-C7 (PT Dx) confirmed on x-ray Assessment: Patient is a pleasant 61 y.o. female who is referred to PT by Dr. Breana Dow MD, with Dx of cervicalgia. Patient has history of rheumatoid arthritis and multi level degenerative changes in cervical spine seen in x-ray imaging. PT diagnosis is moderate degenerative changes at C4-C5 and C6-C7. Patient impairments include poor posture and positioning, pain, limited ROM, weakness in UEs. Patient current functional limitations are prolonged sitting to work on computer, sleeping, doing artwork, clean cat litter box. Patient will benefit from skilled PT to address aforementioned impairments and functional limitations to meet established goals. Frequency and Duration: The patient will be seen 2x/week for 4 weeks Short Term Goals: 2 weeks Patient demonstrates consistency and independence with HEP to self manage symptoms. Patient presents without slouched posture in sitting without cues. Detention Goals: 4 weeks Patient presents with increased middle trap strength 4/5 to clean cat litter box without sxs. Patient presents with increased R shoulder flexion strength 4+/5 to be able to do artwork with UEs without fatigue. Treatment Plan: Modalities to reduce pain, spasms and effusion. Manual therapy to restore motion and function. Therapeutic exercise to improve strength and flexibility. Neuromuscular re-education for posture and balance. Therapeutic activities to return to functional activities of daily living. Electronically signed by: George Monson, PT, DPT Please sign and return to therapist. Thank you for your referral.
--- NOTE | 2023-01-01 12:40 | MHC.PT.DC ---
[facility] [place] [facility] [place] Office [place] Office [address] Digna Perez [address] [phone] F: [phone] F: [phone] F: [phone] F: [phone] Physical Therapy Discharge Report Diagnosis: cervicalgia (MD Dx) moderate degenerative changes at C4-C5 and C6-C7 (PT Dx) confirmed on x-ray Date of Surgery: Date of Evaluation: 11/09/22 Date of Discharge: 01/01/23 Treatments to Date: 2 Cancellations to Date: 3 No Shows to Date: 0 Discharge Status: Independent with HEP Patient Elected to Stop Discharge Summary: Patient was only treated for 2 PT sessions, then she ceased attending on her own accord. She was given HEP and discussed postural adjustments and pillow to help with alignment of neck to improve sleep. Difficulty determining effectiveness of PT interventions on patient condition due to limited treatment sessions. She is discharged at this time for non compliance. Electronically signed by: George Monson, PT, DPT Please sign and return to therapist. Thank you for your referral.
== END 2023-01-01 12:41 | disposition home or self-care (01) ==
LOC: HO.PT 10:00
PROVIDERS: PCP General Practice; Visit Provider Student in an Organized Health Care Education/Training Program
DX: M54.2 Cervicalgia (principal)
CPT/HCPCS: 97110; 97140; 97161

== ENCOUNTER 2023-03-01 10:42 | Outpatient (REF) | payer MEDICARE, MEDICAID, SELFPAY ==
--- NOTE | ~2023-03-01 | US_ITS ---
EXAMINATION: US PELVIS CLINICAL INFORMATION: Postmenopausal bleeding. COMPARISON: None available. TECHNIQUE: Ultrasound of the pelvis is performed using both transabdominal and transvaginal transducers along with Doppler. Transvaginal imaging is performed due to inadequate visualization transabdominally. FINDINGS: The uterus measures 6.2 x 2.5 x 5.1 cm. No discrete fibroids are visualized. Uterus is heterogeneous in echotexture. Uterine configuration raises the possibility of a congenital anomaly, possibly a bicornuate uterus. Right endometrial horn is heterogeneous with thickness of 0.7 cm. Left endometrial horn is heterogeneous with thickness of 0.9 cm. Nabothian cysts. The structure felt to represent the right ovary measures 6.6 x 5.5 x 6.4 cm, volume 121.64 mL. Right adnexal 6.4 x 5.0 x 6.0 cm cyst with possible thin septation, likely ovarian. Left ovary measures 6.3 x 3.7 x 7.1 cm, volume 86.7 mL. Left adnexal 4.9 x 2.9 x 4.8 cm complex anechoic lesion with configuration suggesting either multiple septations related to an adnexal cyst, possibly ovarian in origin, versus a tubular lesion such as a hydrosalpinx. No significant free fluid. US/US pelvic and transvaginal IMPRESSION: 1. Uterine configuration raises the possibility of a congenital anomaly, possibly a bicornuate uterus. Right endometrial horn is heterogeneous with thickness of 0.7 cm. Left endometrial horn is heterogeneous with thickness of 0.9 cm. Endometrial thickness is abnormal for a postmenopausal patient. Endometrial biopsy recommended. 2. Right adnexal 6.4 x 5.0 x 6.0 cm cyst with possible thin septation, likely ovarian. 3. Left adnexal 4.9 cm complex anechoic lesion with configuration suggesting either multiple septations related to an adnexal cyst, possibly ovarian in origin, versus a tubular lesion such as a hydrosalpinx. Gynecologic consultation recommended to determine further management. Recommend additional imaging with contrast-enhanced MRI for this postmenopausal patient. Recommend follow-up ultrasound in 6-8 weeks. This study was presented today, March 04, 2023 at 6:45 AM for interpretation. PSA staff will provide results to referring provider at this time.
== END 2023-03-01 10:43 | disposition home or self-care (01) ==
LOC: HO.US 10:42
PROVIDERS: PCP General Practice; Visit Provider Emergency Medicine
DX: N95.0 Postmenopausal bleeding (principal)
CPT/HCPCS: 76830; 76856

== ENCOUNTER 2023-03-11 13:05 | Outpatient (REF) | payer MEDICARE, MEDICAID, SELFPAY ==
[2023-03-11 13:20] LABS: MANUAL DIFF FLAG NO
[2023-03-11 14:28] LABS: Basophils Absolute Auto 0.1 X10*3/uL (0.0-0.2); Basophils Percent Auto 0.6 % (0-2); Eosinophils Absolute Auto 0.2 X10*3/uL (0.0-0.4); Eosinophils Percent Auto 1.7 % (0-4); Hematocrit 38.2 % (37.0-47.0); Imm Gran Abs Auto 0.07 X10*3/uL (0.00-0.03); Imm Gran Pct Auto 0.7 % (0.0-0.4); Lymphocytes Absolute Auto 1.6 X10*3/uL (1.2-4.9); Lymphocytes Percent Auto 15.1 % (20-40); Mean Corpuscular HGB Conc 31.4 g/dl (31.0-35.0); Mean Corpuscular Hemoglobin 28.6 pg (27.0-33.0); Mean Platelet Volume 10.8 fL (9.4-12.3); Monocytes Absolute Auto 0.5 X10*3/uL (0.1-1.2); Monocytes Percent Auto 4.8 % (2-11); Neutrophils Absolute Auto 8.3 x10*3/uL (2.0-8.3); Neutrophils Percent Auto 77.1 % (45-73); Platelet Count 250 X10*3/uL (160-400); Red Cell Distribution Width 14.4 % (11.0-16.0); White Blood Count 10.7 X10*3/uL (4.8-10.8)
[2023-03-11 14:50] LABS: Alanine Aminotransferase 15 U/L (0-31); Albumin Level 4.2 g/dL (3.5-5.0); Alkaline Phosphatase 111 U/L (39-117); Anion Gap 16 (12-20); Aspartate Amino Transferase 24 U/L (5-31); Bilirubin Total 0.3 mg/dL (0.0-1.0); Blood Urea Nitrogen 13 mg/dL (9-16); C Reactive Protein 0.84 mg/dL (< or = 0.50); Calcium 9.3 mg/dL (8.4-10.2); Carbon Dioxide 26 mmol/L (22-29); Chloride 104 mmol/L (96-108); Estimated Glomerular Filt Rate > 60; Glucose Random 101 mg/dL (60-115); Potassium 4.8 mmol/L (3.3-5.1); Sodium 141 mmol/L (135-145); Total Protein 7.3 g/dL (6.5-8.0)
[2023-03-11 15:13] LABS: Erythrocyte Sedimentation Rate 23 MM/HR (0-20)
[2023-03-12 04:50] LABS: HBS Num1 0.45 mIU/mL (0-7.99); HBc Num1 0.08 S/CO (0.00-0.79); HBsAGNum1 0.29 S/CO (0.00-0.99); Hepatitis A Antibody IgM 0.19 Index (0-0.79); Hepatitis B Core Antibody Nonreactive (Nonreactive); Hepatitis B Surface Antigen Negative (Negative); ~HepC Num1 0.14 S/CO (0.00-0.79); ~Hepatitis A Antibody IgM Nonreactive (Nonreactive); ~Hepatitis B Surface Antibody NONREACTIVE (Nonreactive); ~Hepatitis C Antibody Nonreactive (Nonreactive)
== END 2023-03-11 13:06 | disposition home or self-care (01) ==
LOC: HO.LAB 13:05
PROVIDERS: Visit Provider Student in an Organized Health Care Education/Training Program
DX: Z11.59 Encounter for screening for other viral diseases (principal); Z72.89 Other problems related to lifestyle; Z79.899 Other long term (current) drug therapy
CPT/HCPCS: 36415; 80053; 85025; 85652; 86140; 86704; 86706; 86709; 86803; 87340

== ENCOUNTER 2023-03-12 11:15 | Outpatient (AMB) | payer MEDICARE, MEDICAID, SELFPAY ==
--- NOTE | 2023-03-12 11:22 | MHC.OFFVIS ---
Intake Vital Signs 03/12/23 11:32 Height 5 ft 2 in Weight 166 lb 7.184 oz BMI 30.4 BP 138/90 H Blood Pressure Location Rt brachial Position Sitting Pulse 83 Pulse Source Pulse Oximeter Temp 97 F Temp Source Skin Pulse Oximetry (%) 95 Oxygen Delivery Method Room Air Intake Visit Reasons: RA Intake Note: Last seen 10/12/22, presents today for follow up and test results. 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 Accompanied by: Self / Same As Patient Allergies hydroxychloroquine [Plaquenil] Allergy (Intermediate, Verified 03/12/23 11:23) diarrhea ibuprofen Adverse Reaction (Mild, Verified 03/12/23 11:23) Nausea and Vomiting naproxen Adverse Reaction (Unknown, Verified 03/12/23 11:) Gastrointestinal Upset Medication List - Last Reconciled 03/12/23 by Breana Dow MD [id number] 250-250-65 mg (Excedrin Migraine) 1 tab PO Q4-6H PRN cholecalciferol (vitamin D3) 100 mcg PO DAILY folic acid 1 mg PO DAILY gabapentin 100 mg PO Q8H methotrexate sodium 10 mg (4 x 2.5 mg) PO QWEEK omeprazole 20 mg PO DAILY sertraline 200 mg PO DAILY tizanidine 4 mg PO BEDTIME [Tylenol Muscle Aches & Pain PO DAILY PRN] HPI HPI Comments History of Present Illness Details 61yoF presents for follow-up of seropositive RA (RF+ CCP-). Last seen 09/2022 On 4 tabs methotrexate weekly and folic acid daily. Well tolerated. She states that she is doing well overall. No new joint pain or swelling. She continues to have intermittent neck and right upper back pain and stiffness. 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 She uses heat, ice packs, she takes tizanidine nightly which helps take the edge off and helps her sleep. Has done physical therapy in the past which did help. [facility] Medical History Hyperparathyroidism Osteoarthritis GERD (gastroesophageal reflux disease) Neck pain Hypoglycemia Seropositive rheumatoid arthritis Surgical History S/P lateral meniscus repair of left knee History of reversal of tubal ligation Hx of tubal ligation Hx of section History of lumpectomy of left breast Family History Mother No problems noted. Father No problems noted. Sister Diabetes Social History Household Members: None Housing: Apartment Alcohol intake: former Patient Tobacco Use Status: Former Tobacco user Tobacco use type: Cigarette Cigarettes Per Day: 30 Years Smoked: 20 e-Cigarette/Vaping Use: Never Used Review of Systems ENT Reports neck pain Musc Reports neck pain Physical Exam Vital Signs: Last Vital Signs Temp 97 F 03/12/23 11:32 Pulse 83 03/12/23 11:32 BP 138/90 H 03/12/23 11:32 Pulse Ox 95 03/12/23 11:32 Oxygen Delivery Method Room Air 03/12/23 11:32 BMI result Body Mass Index 30.4 Const General: cooperative, healthy appearing and comfortable Nutritional Appearance: overweight Orientation/consciousness: patient oriented x3 Limitations: no limitations HEENT Head: Yes normocephalic and Yes atraumatic Mouth: moist mucous membranes Neck Other: Mildly limited range of motion of her neck with rotation to the right. Pain with neck rotation to the left. Mild tenderness and pain along her neck and upper back on the right. Negative Spurling's test bilaterally Resp Effort & Inspection: normal respiratory effort and able to speak in complete sentences Auscultation: clear to auscultation bilaterally Cardio Rate: regular rate Rhythm: regular rhythm GI Inspection: No distended Palpation (GI): Soft to palpation and nontender Neuro General: patient oriented x3 Extrem Other: No active synovitis today Few Heberden's nodes that are minimally tender. Assessment & Plan Assessment & Plan (1) Seropositive rheumatoid arthritis: Comment: dx 2019 +RF -ve CCP Code(s): M05.9 - Rheumatoid arthritis with rheumatoid factor, unspecified Plan: Seropositive RA well controlled on methotrexate 10 mg weekly and folic acid daily. No synovitis on exam. Continue methotrexate 10 mg weekly and folic acid daily. Labs before next visit in 4 months Patient states that she is planned for a hysterectomy in the coming few weeks. I advised patient to hold methotrexate 2 weeks before the procedure and resume it leaks 2 weeks after once wound has been checked on postop and is healing properly. (2) Neck pain: Code(s): M54.2 - Cervicalgia Plan: X-ray 05/2021 with unchanged moderate degenerative changes at C4-C5 and C6-C7. Patient's neck pain is likely mechanical in nature and related to underlying degenerative arthritis. 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 (4) Height loss: Code(s): R29.890 - Loss of height Plan: Patient stated that she has lost around 1 inch recently. Will check a bone density scan to evaluate for osteoporosis Patient was diagnosed with hyperparathyroidism last year. Will recheck PTH labs (5) Immunization counseling: Code(s): Z71.85 - Encounter for immunization safety counseling Plan: Advised patient to get the flu vaccine for this season and new COVID booster. Advised patient to hold methotrexate 2 weeks after vaccination Plan I spent 36 minutes reviewing patient's chart, evaluating patient, ordering diagnostic workup, counseling patient and documenting in the chart Orders: Orders Complete Blood Count Auto Diff 4 Months Z79.899 - Other prison (current) drug therapy C Reactive Protein 4 Months Z79.899 - Other long distance operator (current) drug therapy Erythrocyte Sedimentation Rate 4 Months Z79.899 - Other long distance operator (current) drug therapy TSH reflex Free T4 3 Months E21.3 - Hyperparathyroidism, unspecified Phosphorus 3 Months E21.3 - Hyperparathyroidism, unspecified Comprehensive Met. Panel 4 Months Z79.899 - Other long distance operator (current) drug therapy XR DEXA axial skeleton Today M81.0 - Age-related osteoporosis without current pathological fracture Parathyroid Hormone Intact 3 Months E21.3 - Hyperparathyroidism, unspecified Vitamin D 25-OH (D2 and D3) 3 Months E21.3 - Hyperparathyroidism, unspecified Medications: Refilled folic acid 1 mg PO DAILY 90 tabs 1RF methotrexate sodium 4 tabs po weekly 10 mg (4 x 2.5 mg) PO QWEEK 48 tabs 1RF M05.9 - Rheumatoid arthritis with rheumatoid factor, unspecified Coding Level of Care Code Est Pt Level 5 (48445) Diagnoses Seropositive rheumatoid arthritis M05.9 Neck pain M54.2 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
[2023-03-12 11:32] VITALS: BP 138/90; PULSE 83; TEMP 36.1; O2SAT 95; BMI 30.4
== END 2023-03-12 11:55 | disposition home or self-care (01) ==
PROVIDERS: PCP General Practice; Visit Provider Student in an Organized Health Care Education/Training Program
DX: M05.79 Rheumatoid arthritis with rheumatoid factor of multiple sites without organ or systems involvement (principal); M54.2 Cervicalgia; Z79.899 Other long term (current) drug therapy; R29.890 Loss of height; Z71.85 Encounter for immunization safety counseling
CPT/HCPCS: 99215

== ENCOUNTER → 2023-03-12 11:15 | Outpatient (BNVA) | payer MEDICARE, MEDICAID, SELFPAY | PROVIDERS: PCP General Practice; Visit Provider Student in an Organized Health Care Education/Training Program | DX: Z71.85 Encounter for immunization safety counseling (principal); M05.9 Rheumatoid arthritis with rheumatoid factor, unspecified; M54.2 Cervicalgia; R29.890 Loss of height; Z79.899 Other long term (current) drug therapy | CPT/HCPCS: 99212 ==

== ENCOUNTER 2023-07-25 11:11 | Outpatient (REF) | payer OTHER, SELFPAY ==
--- NOTE | ~2023-07-25 | MM_ITS ---
EXAMINATION: BONE DENSITOMETRY CLINICAL INDICATION: Age-related osteoporosis without current pathological fracture. COMPARISON: This is the patient's baseline examination. TECHNIQUE: Using a Add2paper DXA System (software version: 13.1) manufactured by [employer], dual-energy x-ray absorptiometry was performed of the lumbar spine and left hip. The images are of good technical quality. Summary results are attached. FINDINGS: LEFT FEMUR, NECK: BMD 0.878 g/cm2, Z-score 0.1, T-score -1.1, osteopenia. LEFT FEMUR, TOTAL: BMD 0.950 g/cm2, Z-score 0.5, T-score -0.5, normal. AP SPINE L1-L4: BMD 1.375 g/cm2, Z-score 2.8, T-score 1.6, normal. IDENTIFIED RISK FACTORS: Menopause, hysterectomy, bilateral oophorectomy, height loss, low calcium intake, rheumatoid arthritis. HISTORY OF FRACTURE: None listed. MEDICATIONS: Vitamin D. MM/XR DEXA axial skeleton IMPRESSION: 1. DIAGNOSIS: Osteopenia based on the lowest T-score value of -1.1 in the femoral neck applying World Health Organization criteria. 2. 10-YEAR FRACTURE RISK PREDICTION, FRAX: Major osteoporotic fracture (clinical spine, forearm, hip or shoulder) 7.7%. Hip fracture 0.6%. 3. Treatment Recommendations: NOF guidelines recommend consideration for treatment in postmenopausal women and men age 50 and older presenting with the following: -A hip or vertebral (clinical or morphometric) fracture. -T-score less than or equal to -2.5 at the femoral neck or spine after appropriate evaluation to exclude secondary causes. -Low bone mass at the hip or spine and a 10-year fracture probability by FRAX of greater than or equal to 3% for hip fracture or greater than or equal to 20% for major osteoporotic fracture based on the [place] adapted WHO algorithm. 4. Other Recommendations: All treatment decisions require clinical judgment and consideration of individual patient factors, including patient preferences, comorbidities, previous drug use, risk factors not captured in the FRAX model (e.g. frailty, falls, vitamin D deficiency, increased bone turnover, interval significant decline in bone density) and possible under or overestimation of fracture risk by FRAX. Additional medical evaluation for secondary cause of low bone mineral density may be appropriate. FUTURE SCAN RECOMMENDATION: People with diagnosed cases of osteoporosis or at high risk for fracture should have regular bone mineral density tests. For patients eligible for Medicare, routine testing is allowed once every 2 years. The testing frequency can be increased to one year for patients who have rapidly progressing disease, those who are receiving or discontinuing medical therapy to restore bone mass, or have additional risk factors.
== END 2023-07-25 11:12 | disposition home or self-care (01) ==
LOC: HO.MAMMO 11:11
PROVIDERS: PCP General Practice; Visit Provider Student in an Organized Health Care Education/Training Program
DX: Z13.820 Encounter for screening for osteoporosis (principal); Z78.0 Asymptomatic menopausal state; M81.0 Age-related osteoporosis without current pathological fracture
CPT/HCPCS: 77080

== ENCOUNTER 2023-09-12 10:16 | Outpatient (REF) | payer OTHER, SELFPAY ==
[2023-09-12 10:32] LABS: MANUAL DIFF FLAG NO
[2023-09-12 11:01] LABS: Basophils Absolute Auto 0.1 X10*3/uL (0.0-0.2); Basophils Percent Auto 0.5 % (0-2); Eosinophils Absolute Auto 0.1 X10*3/uL (0.0-0.4); Eosinophils Percent Auto 1.3 % (0-4); Hematocrit 39.2 % (37.0-47.0); Hemoglobin 12.2 g/dl (12.0-16.0); Imm Gran Abs Auto 0.04 X10*3/uL (0.00-0.03); Imm Gran Pct Auto 0.4 % (0.0-0.4); Lymphocytes Absolute Auto 1.4 X10*3/uL (1.2-4.9); Lymphocytes Percent Auto 15.3 % (20-40); Mean Corpuscular HGB Conc 31.1 g/dl (31.0-35.0); Mean Corpuscular Volume 89.9 fL (80.0-98.0); Mean Platelet Volume 10.5 fL (9.4-12.3); Monocytes Absolute Auto 0.4 X10*3/uL (0.1-1.2); Monocytes Percent Auto 4.7 % (2-11); Neutrophils Absolute Auto 7.2 x10*3/uL (2.0-8.3); Neutrophils Percent Auto 77.8 % (45-73); Platelet Count 238 X10*3/uL (160-400); Red Blood Count 4.36 X10*6/uL (4.20-5.50); Red Cell Distribution Width 14.9 % (11.0-16.0); White Blood Count 9.3 X10*3/uL (4.8-10.8)
[2023-09-12 11:43] LABS: Erythrocyte Sedimentation Rate 20 MM/HR (0-20)
[2023-09-12 11:44] LABS: Parathyroid Hormone Intact 138.4 pg/mL (8.7-77.1)
[2023-09-12 11:48] LABS: Alanine Aminotransferase 23 U/L (0-31); Albumin Level 4.3 g/dL (3.5-5.0); Alkaline Phosphatase 112 U/L (39-117); Anion Gap 14 (12-20); Aspartate Amino Transferase 32 U/L (5-31); Bilirubin Total 0.3 mg/dL (0.0-1.0); Blood Urea Nitrogen 15 mg/dL (9-16); C Reactive Protein 0.99 mg/dL (< or = 0.50); Calcium 9.9 mg/dL (8.4-10.2); Carbon Dioxide 29 mmol/L (22-29); Chloride 104 mmol/L (96-108); Estimated Glomerular Filt Rate > 60; Glucose Random 101 mg/dL (60-115); Phosphorus 3.8 mg/dL (2.7-4.5); Potassium 4.8 mmol/L (3.3-5.1); Sodium 142 mmol/L (135-145); Total Protein 7.9 g/dL (6.5-8.0)
[2023-09-12 12:03] LABS: TSH reflex Free T4 1.66 uIU/mL (0.32-4.0)
[2023-09-17 10:49] LABS: Vitamin D 25-OH, D2 <4 ng/mL; Vitamin D 25-OH, D3 49 ng/mL; Vitamin D 25-OH, Total 49 ng/mL (30-100)
== END 2023-09-12 10:17 | disposition home or self-care (01) ==
LOC: HO.LAB 10:16
PROVIDERS: PCP General Practice; Visit Provider Student in an Organized Health Care Education/Training Program
DX: E21.3 Hyperparathyroidism, unspecified (principal); Z79.899 Other long term (current) drug therapy
CPT/HCPCS: 36415; 80053; 82306; 83970; 84100; 84443; 85025; 85652; 86140

== ENCOUNTER 2023-09-16 10:25 | Outpatient (AMB) | payer OTHER, SELFPAY ==
[2023-09-16 10:36] VITALS: BP 126/66; PULSE 80; O2SAT 96; BMI 29.6
--- NOTE | 2023-09-16 10:36 | A.OFFVIS_ITS ---
Vital Signs 09/16/23 10:36 Height 5 ft 2 in Weight 161 lb 13.109 oz BMI 29.6 BP 126/66 Blood Pressure Location Rt brachial Position Sitting Pulse 80 Pulse Source Pulse Oximeter Pulse Oximetry (%) 96 Oxygen Delivery Method Room Air Intake Visit Reasons: RA/CM Intake Note: Patient last seen 03/12/23 presents today for follow up and test results. Reports right sided back pain/sensitivity. Boot Maker Required: No Accompanied by: Self / Same As Patient Allergies hydroxychloroquine [Plaquenil] Allergy (Intermediate, Verified 09/16/23 10:43) diarrhea ibuprofen Adverse Reaction (Mild, Verified 09/16/23 10:43) Nausea and Vomiting naproxen Adverse Reaction (Unknown, Verified 09/16/23 10:43) Gastrointestinal Upset Medication List - Last Reconciled 09/16/23 by Breana Dow MD [id number] 250-250-65 mg (Excedrin Migraine) 1 tab PO Q4-6H PRN cholecalciferol (vitamin D3) 100 mcg PO DAILY folic acid 1 mg PO DAILY gabapentin 100 mg PO Q8H methotrexate sodium 10 mg (4 x 2.5 mg) PO QWEEK omeprazole 20 mg PO DAILY sertraline 200 mg PO DAILY tizanidine 4 mg PO BEDTIME [Tylenol Muscle Aches & Pain PO DAILY PRN] HPI Comments Details: 62yoF presents for follow-up of seropositive RA (RF+ CCP-). Last seen 02/2023 On 4 tabs methotrexate weekly and folic acid daily. Well tolerated. She states that she is doing well overall. No new joint pain or swelling. She continues to have intermittent neck and right upper back pain and stiffness. She gets intermittent right-sided back sensitivity. She denies any radiating pain. Today is a good day however. [facility] Medical History Hyperparathyroidism Osteoarthritis GERD (gastroesophageal reflux disease) Neck pain Hypoglycemia Seropositive rheumatoid arthritis Surgical History S/P lateral meniscus repair of left knee History of reversal of tubal ligation Hx of tubal ligation Hx of section History of lumpectomy of left breast Family History Mother No problems noted. Father No problems noted. Sister Diabetes Social History Household Members: None Housing: Apartment Alcohol intake: former Patient Tobacco Use Status: Former Tobacco user Tobacco use type: Cigarette Cigarettes Per Day: 30 Years Smoked: 20 e-Cigarette/Vaping Use: Never Used Review of Systems Musc Reports back pain, Denies arthralgias and Denies joint swelling Physical Exam Vital Signs: Last Vital Signs Pulse 80 09/16/23 10:36 BP 126/66 09/16/23 10:36 Pulse Ox 96 09/16/23 10:36 Oxygen Delivery Method Room Air 09/16/23 10:36 BMI result Body Mass Index 29.6 Const General: cooperative, healthy appearing and comfortable Nutritional Appearance: overweight Orientation/consciousness: patient oriented x3 Limitations: no limitations HEENT Head: Yes normocephalic and Yes atraumatic Mouth: moist mucous membranes Resp Effort & Inspection: normal respiratory effort and able to speak in complete sentences Auscultation: clear to auscultation bilaterally Cardio Rate: regular rate Rhythm: regular rhythm GI Inspection: No distended Palpation (GI): Soft to palpation and nontender Back/Spine/Pelvis Other: No spinal or paraspinal muscle tenderness Negative straight leg raise test bilaterally Neuro General: patient oriented x3 Extrem Other: No active synovitis today Few Heberden's nodes that are minimally tender. Assessment & Plan Assessment & Plan (1) Seropositive rheumatoid arthritis: Comment: dx 2019 +RF -ve CCP Code(s): M05.9 - Rheumatoid arthritis with rheumatoid factor, unspecified Category: Medical Plan: Seropositive RA well controlled on methotrexate 10 mg weekly and folic acid daily. No synovitis on exam. Continue methotrexate 10 mg weekly and folic acid daily. Labs before next visit in 6 months (2) FPC methotrexate user: Code(s): Z79.899 - Other superintendent [employer] (current) drug therapy Category: Medical Plan: Monitor safety labs. (3) Height loss: Code(s): R29.890 - Loss of height Category: Medical Plan: Patient had mentioned last visit that she lost 1 in. DEXA scan only shows osteopenia with a low FRAX score. No need for antiresorptives at this time (4) Hyperparathyroidism: Code(s): E21.3 - Hyperparathyroidism, unspecified Category: Medical Plan: Increase PTH level with normal serum calcium. Referred to Endocrinology Plan I spent 26 minutes reviewing patient's chart, evaluating patient, ordering diagnostic workup, counseling patient and documenting in the chart Orders: Orders Comprehensive Met. Panel 6 Months M05.9 - Rheumatoid arthritis with rheumatoid factor, unspecified, Z79.899 - Other [employer] (current) drug therapy C Reactive Protein 6 Months M05.9 - Rheumatoid arthritis with rheumatoid factor, unspecified, Z79.899 - Other superintendent [employer] (current) drug therapy Complete Blood Count Auto Diff 6 Months M05.9 - Rheumatoid arthritis with rheumatoid factor, unspecified, Z79.899 - Other halfway (current) drug therapy Erythrocyte Sedimentation Rate 6 Months M05.9 - Rheumatoid arthritis with rheumatoid factor, unspecified, Z79.899 - Other superintendent [employer] (current) drug therapy Referrals Endocrinology Referral E21.3 - Hyperparathyroidism, unspecified Coding Level of Care Code Est Pt Level 4 (37629) Diagnoses Seropositive rheumatoid arthritis M05.9 FPC methotrexate user Z79.899 Height loss R29.890 Hyperparathyroidism E21.3
== END 2023-09-16 11:05 | disposition home or self-care (01) ==
PROVIDERS: PCP General Practice; Visit Provider Student in an Organized Health Care Education/Training Program
DX: M05.79 Rheumatoid arthritis with rheumatoid factor of multiple sites without organ or systems involvement (principal); Z79.899 Other long term (current) drug therapy; R29.890 Loss of height; E21.3 Hyperparathyroidism, unspecified
CPT/HCPCS: 99214

== ENCOUNTER → 2023-09-16 10:25 | Outpatient (BNVA) | payer OTHER, SELFPAY | PROVIDERS: PCP General Practice; Visit Provider Student in an Organized Health Care Education/Training Program | DX: M05.9 Rheumatoid arthritis with rheumatoid factor, unspecified (principal); E21.3 Hyperparathyroidism, unspecified; R29.890 Loss of height; Z79.631 Long term (current) use of antimetabolite agent; Z79.899 Other long term (current) drug therapy | CPT/HCPCS: 99212 ==

== ENCOUNTER 2023-10-30 11:09 | Outpatient (AMB) | payer OTHER, SELFPAY ==
[2023-10-30 11:10] VITALS: BP 138/68; PULSE 77; BMI 29.9
--- NOTE | 2023-10-30 11:10 | A.OFFVIS_ITS ---
Vital Signs 10/30/23 11:10 Height 5 ft 2 in Weight 163 lb 9.328 oz BMI 29.9 BP 138/68 Blood Pressure Location Lt brachial Position Sitting Pulse 77 Pulse Source Pulse Oximeter Intake Visit Reasons: Hyperparathyroidism Intake Note: Patient present today for Hyperparathyroidism follow up visit. Last seen on 07/07/21. Allergies hydroxychloroquine [Plaquenil] Allergy (Intermediate, Verified 09/16/23 10:43) diarrhea ibuprofen Adverse Reaction (Mild, Verified 09/16/23 10:43) Nausea and Vomiting naproxen Adverse Reaction (Unknown, Verified 09/16/23 10:43) Gastrointestinal Upset Medication List - Last Reconciled 10/30/23 by Chucho Reyes MD [id number] 250-250-65 mg (Excedrin Migraine) 1 tab PO Q4-6H PRN cholecalciferol (vitamin D3) 100 mcg PO DAILY folic acid 1 mg PO DAILY gabapentin 100 mg PO Q8H methotrexate sodium 10 mg (4 x 2.5 mg) PO QWEEK omeprazole 20 mg PO DAILY sertraline 200 mg PO DAILY tizanidine 4 mg PO BEDTIME [Tylenol Muscle Aches & Pain PO DAILY PRN] HPI Comments Details: 62 YO [M/F] with who is seen in consultation at the request of PCP for increased PTH First noted to have slightly high calcium 05/2021. Not Currently using Calcium supplement . not Takes IU of Vitamin D daily. Currently not using HCTZ. Kidney stones: No Osteoporosis: No History of [place] use: No Biotin use: No Family history of high calcium or kidney stones: No DXA: No Labs: Workup is consistent with mild primary hyperparathyroidism [facility] Medical History Hyperparathyroidism Osteoarthritis GERD (gastroesophageal reflux disease) Neck pain Hypoglycemia Seropositive rheumatoid arthritis Surgical History (Updated 10/30/23 @ 11:17 by LEROY De Guzman) H/O: hysterectomy S/P lateral meniscus repair of left knee History of reversal of tubal ligation Hx of tubal ligation Hx of section History of lumpectomy of left breast Family History Mother No problems noted. Father No problems noted. Sister Diabetes Social History Household Members: None Housing: Apartment Alcohol intake: former Patient Tobacco Use Status: Former Tobacco user Tobacco use type: Cigarette Cigarettes Per Day: 30 Years Smoked: 20 e-Cigarette/Vaping Use: Never Used Assessment & Plan Assessment & Plan (1) Hyperparathyroidism: Code(s): E21.3 - Hyperparathyroidism, unspecified Category: Medical Plan: This 62-year-old white female found to have elevated PTH with slightly elevated calcium levels suggesting mild primary hyperparathyroidism. The plan is to check a renal ultrasound. Assuming the absence of kidney stones, patient does not meet clear criteria for surgical exploration and can be followed. We will also repeat calcium and PTH to verify increase PTH at lab [facility] as they have been some lab issues measuring PTH Orders: Orders Calcium Today E21.3 - Hyperparathyroidism, unspecified Albumin Level Today E21.3 - Hyperparathyroidism, unspecified Parathyroid Hormone Intact Today E21.3 - Hyperparathyroidism, unspecified US renal BI Today E21.0 - Primary hyperparathyroidism, E21.3 - Hyperparathyroidism, unspecified Coding Level of Care Code Est Pt Level 3 (25667) Diagnoses Hyperparathyroidism E21.3
== END 2023-10-30 11:29 | disposition home or self-care (01) ==
PROVIDERS: PCP General Practice; Visit Provider Internal Medicine Endocrinology, Diabetes & Metabolism
DX: E21.3 Hyperparathyroidism, unspecified (principal)
CPT/HCPCS: 99213

== ENCOUNTER → 2023-10-30 11:09 | Outpatient (BNVA) | payer OTHER, SELFPAY | PROVIDERS: PCP General Practice; Visit Provider Internal Medicine Endocrinology, Diabetes & Metabolism | DX: E21.3 Hyperparathyroidism, unspecified (principal) | CPT/HCPCS: 99212 ==

== ENCOUNTER 2023-11-13 10:11 | Outpatient (REF) | payer OTHER, SELFPAY ==
--- NOTE | ~2023-11-13 | US_ITS ---
EXAMINATION: US RETROPERITONEAL COMPLETE (RENAL) CLINICAL INFORMATION: History of primary hyperparathyroidism, rule out nephrolithiasis. COMPARISON: None available. TECHNIQUE: Real-time imaging of the kidneys and bladder. Limited visualization due to bowel gas. FINDINGS: RIGHT KIDNEY: Approximately 7.2 x 4.0 x 3.7 cm (SAG x AP x TRV). Configuration of kidneys suggests a horseshoe kidney which could be confirmed with CT scan as visualization is limited due to bowel gas. No hydronephrosis. No renal calculi. LEFT KIDNEY: Approximately 9.1 x 3.9 x 3.6 cm (SAG x AP x TRV). Configuration of kidneys suggests a horseshoe kidney which could be confirmed with CT scan as visualization is limited due to bowel gas. No hydronephrosis. No renal calculi. 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 No hydronephrosis. No renal calculi. Electronically signed by: Lillie Snell MD 11/27/2023 06:00 AM EDT
== END 2023-11-13 10:12 | disposition home or self-care (01) ==
LOC: HO.US 10:11
PROVIDERS: PCP General Practice; Visit Provider Internal Medicine Endocrinology, Diabetes & Metabolism
DX: E21.0 Primary hyperparathyroidism (principal); E21.3 Hyperparathyroidism, unspecified
CPT/HCPCS: 76775

== ENCOUNTER 2024-03-04 09:11 | Outpatient (REF) | payer OTHER, SELFPAY ==
[2024-03-04 09:23] LABS: MANUAL DIFF FLAG NO
[2024-03-04 10:10] LABS: Basophils Percent Auto 0.5 % (0-2); Eosinophils Absolute Auto 0.2 X10*3/uL (0.0-0.4); Eosinophils Percent Auto 2.1 % (0-4); Hematocrit 39.1 % (37.0-47.0); Hemoglobin 12.1 g/dl (12.0-16.0); Imm Gran Abs Auto 0.05 X10*3/uL (0.00-0.03); Imm Gran Pct Auto 0.7 % (0.0-0.4); Lymphocytes Absolute Auto 1.6 X10*3/uL (1.2-4.9); Lymphocytes Percent Auto 20.7 % (20-40); Mean Corpuscular HGB Conc 30.9 g/dl (31.0-35.0); Mean Corpuscular Hemoglobin 28.3 pg (27.0-33.0); Mean Corpuscular Volume 91.4 fL (80.0-98.0); Mean Platelet Volume 10.8 fL (9.4-12.3); Monocytes Absolute Auto 0.5 X10*3/uL (0.1-1.2); Monocytes Percent Auto 6.1 % (2-11); Neutrophils Absolute Auto 5.2 x10*3/uL (2.0-8.3); Neutrophils Percent Auto 69.9 % (45-73); Platelet Count 225 X10*3/uL (160-400); Red Blood Count 4.28 X10*6/uL (4.20-5.50); Red Cell Distribution Width 14.7 % (11.0-16.0); White Blood Count 7.5 X10*3/uL (4.8-10.8)
[2024-03-04 10:49] LABS: Erythrocyte Sedimentation Rate 18 MM/HR (0-20)
[2024-03-04 11:00] LABS: Alanine Aminotransferase 39 U/L (0-31); Albumin Level 4.2 g/dL (3.5-5.0); Alkaline Phosphatase 110 U/L (39-117); Anion Gap 11 (12-20); Aspartate Amino Transferase 37 U/L (5-31); Bilirubin Total 0.2 mg/dL (0.0-1.0); Blood Urea Nitrogen 13 mg/dL (9-16); C Reactive Protein 0.65 mg/dL (< or = 0.50); Calcium 10.1 mg/dL (8.4-10.2); Carbon Dioxide 30 mmol/L (22-29); Chloride 107 mmol/L (96-108); Estimated Glomerular Filt Rate > 60; Glucose Random 89 mg/dL (60-115); Potassium 4.4 mmol/L (3.3-5.1); Sodium 144 mmol/L (135-145); Total Protein 7.7 g/dL (6.5-8.0)
== END 2024-03-04 09:12 | disposition home or self-care (01) ==
LOC: HO.LAB 09:11
PROVIDERS: PCP General Practice; Visit Provider Student in an Organized Health Care Education/Training Program
DX: Z79.899 Other long term (current) drug therapy (principal); M05.9 Rheumatoid arthritis with rheumatoid factor, unspecified; E21.3 Hyperparathyroidism, unspecified
CPT/HCPCS: 36415; 80053; 85025; 85652; 86140; 99212

== ENCOUNTER 2024-03-04 09:24 | Outpatient (AMB) | payer OTHER, SELFPAY ==
--- NOTE | 2024-03-04 09:40 | MHC.OFFVIS ---
Vital Signs 03/04/24 09:43 Height 5 ft 2 in Weight 170 lb 6.677 oz BMI 31.2 BP 132/66 Blood Pressure Location Rt brachial Position Sitting Pulse 76 Pulse Source Pulse Oximeter Intake Visit Reasons: Hyperparathyroidism Intake Note: Patient present today for Hyperparathyroidism follow up visit. Sql Analyst Required: No Accompanied by: Self / Same As Patient Allergies hydroxychloroquine [Plaquenil] Allergy (Intermediate, Verified 03/04/24 09:44) diarrhea ibuprofen Adverse Reaction (Mild, Verified 03/04/24 09:44) Nausea and Vomiting naproxen Adverse Reaction (Unknown, Verified 03/04/24 09:44) Gastrointestinal Upset HPI Comments Details: 62 YO [M/F] with who is seen in consultation at the request of PCP for increased PTH First noted to have slightly high calcium 05/2021. Not Currently using Calcium supplement . not Takes IU of Vitamin D daily. Currently not using HCTZ. Kidney stones: No Osteoporosis: No History of [place] use: No Biotin use: No Family history of high calcium or kidney stones: No DXA: No Labs: Workup is consistent with mild primary hyperparathyroidism. Repeat PTH and calcium are pending. DEXA did not show osteoporosis and renal ultrasound did not show kidney stones [facility] Medical History Hyperparathyroidism Osteoarthritis GERD (gastroesophageal reflux disease) Neck pain Hypoglycemia Seropositive rheumatoid arthritis Surgical History H/O: hysterectomy S/P lateral meniscus repair of left knee History of reversal of tubal ligation Hx of tubal ligation Hx of section History of lumpectomy of left breast Family History Mother No problems noted. Father No problems noted. Sister Diabetes Social History Household Members: None Housing: Apartment Alcohol intake: former Patient Tobacco Use Status: Former Tobacco user Tobacco use type: Cigarette Cigarettes Per Day: 30 Years Smoked: 20 e-Cigarette/Vaping Use: Never Used Physical Exam Vital Signs: Last Vital Signs Pulse 76 03/04/24 09:43 BP 132/66 03/04/24 09:43 BMI result Body Mass Index 31.2 Assessment & Plan Assessment & Plan (1) Hyperparathyroidism: Code(s): E21.3 - Hyperparathyroidism, unspecified Category: Medical Plan: This 62-year-old white female found to have elevated PTH with slightly elevated calcium levels suggesting mild primary hyperparathyroidism. Repeat calcium and PTH done at lab [facility] was normal At this point, patient returned to the care of her primary care provider. There is no need for any endocrine workup or follow up at this point Coding Level of Care Code Est Pt Level 3 (94896) Diagnoses Hyperparathyroidism E21.3
[2024-03-04 09:43] VITALS: BP 132/66; PULSE 76; BMI 31.2
== END 2024-03-04 10:05 | disposition home or self-care (01) ==
PROVIDERS: PCP General Practice; Visit Provider Internal Medicine Endocrinology, Diabetes & Metabolism
DX: E21.3 Hyperparathyroidism, unspecified (principal)
CPT/HCPCS: 99213

== ENCOUNTER 2024-03-19 10:15 | Outpatient (AMB) | payer OTHER, SELFPAY ==
--- NOTE | 2024-03-19 10:30 | A.OFFVIS_ITS ---
Vital Signs 03/19/24 10:34 Height 5 ft 1 in Weight 168 lb 3.403 oz BMI 31.8 BP 120/62 Blood Pressure Location Rt brachial Position Sitting Pulse 69 Pulse Source Pulse Oximeter Pulse Oximetry (%) 95 Oxygen Delivery Method Room Air Intake Visit Reasons: RA Intake Note: Patient presents for RA. Allergies hydroxychloroquine [Plaquenil] Allergy (Intermediate, Verified 03/19/24 10:33) diarrhea ibuprofen Adverse Reaction (Mild, Verified 03/19/24 10:33) Nausea and Vomiting naproxen Adverse Reaction (Unknown, Verified 03/19/24 10:33) Gastrointestinal Upset Medication List - Last Reconciled 03/19/24 by Breana Dow MD acetaminophen ER (Tylenol Arthritis Pain) 650 mg PO Q8H [id number] 250-250-65 mg (Excedrin Migraine) 1 tab PO Q4-6H PRN cholecalciferol (vitamin D3) 100 mcg PO DAILY gabapentin 100 mg PO Q8H omeprazole 20 mg PO DAILY sertraline 200 mg PO DAILY tizanidine 4 mg PO BEDTIME HPI Comments Details: 63yoF presents for follow-up of seropositive RA (RF+ CCP-). Last seen 08/2023 On 4 tabs methotrexate weekly and folic acid daily. Well tolerated. She states that she is doing well overall. She states that her left middle finger PIP gets stiff sometimes, intermittently painful but no significant swelling. [facility] Medical History (Updated 03/19/24 @ 11:04 by Breana Dow MD) Osteoarthritis GERD (gastroesophageal reflux disease) Neck pain Hypoglycemia Seropositive rheumatoid arthritis Surgical History H/O: hysterectomy S/P lateral meniscus repair of left knee History of reversal of tubal ligation Hx of tubal ligation Hx of section History of lumpectomy of left breast Family History Mother No problems noted. Father No problems noted. Sister Diabetes Social History Household Members: None Housing: Apartment Alcohol intake: former Patient Tobacco Use Status: Former Tobacco user Tobacco use type: Cigarette Cigarettes Per Day: 30 Years Smoked: 20 e-Cigarette/Vaping Use: Never Used Review of Systems [facility] Reports arthralgias, Denies joint swelling and Reports stiffness Physical Exam Vital Signs: Last Vital Signs Pulse 69 03/19/24 10:34 BP 120/62 03/19/24 10:34 Pulse Ox 95 03/19/24 10:34 Oxygen Delivery Method Room Air 03/19/24 10:34 BMI result Body Mass Index 31.8 Const General: cooperative, healthy appearing and comfortable Nutritional Appearance: overweight Orientation/consciousness: patient oriented x3 Limitations: no limitations HEENT Head: Yes normocephalic and Yes atraumatic Mouth: moist mucous membranes Resp Effort & Inspection: normal respiratory effort and able to speak in complete sentences Auscultation: clear to auscultation bilaterally Cardio Rate: regular rate Rhythm: regular rhythm GI Inspection: No distended Palpation (GI): Soft to palpation and nontender Back/Spine/Pelvis Other: No spinal or paraspinal muscle tenderness Negative straight leg raise test bilaterally Neuro General: patient oriented x3 Extrem Other: Subtle synovial thickening of right 3rd MCP and 5th MCP No active synovitis today Few Heberden's nodes that are minimally tender. Assessment & Plan Assessment & Plan (1) Seropositive rheumatoid arthritis: Comment: dx 2019 +RF -ve CCP diarrhea with HCQ On MTX since 2019 Code(s): M05.9 - Rheumatoid arthritis with rheumatoid factor, unspecified Category: Medical Plan: Seropositive RA well controlled on methotrexate 10 mg weekly and folic acid daily. No synovitis on exam. Recent labs however showed transaminitis. Does not look like there has been any provoking factors such as recent illness, new drugs, recent alcohol use. Will discontinue methotrexate and folic acid at this time Monitor patient off DMARDs Labs before next visit in 3 months (2) Transaminitis: Code(s): R74.01 - Elevation of levels of liver transaminase levels Category: Medical Plan: Methotrexate discontinued as mentioned above. Repeat in 3 months. If remains elevated, consider further workup such as liver elastography Plan I spent 26 minutes reviewing patient's chart, evaluating patient, ordering diagnostic workup, counseling patient and documenting in the chart Orders: Orders Comprehensive Met. Panel 3 Months M05.9 - Rheumatoid arthritis with rheumatoid factor, unspecified, Z79.899 - Other buttermaker continuous churn (current) drug therapy Hepatitis A,B,C Profile 3 Months Z11.59 - Encounter for screening for other viral diseases T Spot TB 3 Months Z11.7 - Encounter for testing for latent tuberculosis infection Complete Blood Count Auto Diff 3 Months M05.9 - Rheumatoid arthritis with rheumatoid factor, unspecified, Z79.899 - Other detention (current) drug therapy C Reactive Protein 3 Months M05.9 - Rheumatoid arthritis with rheumatoid factor, unspecified, Z79.899 - Other detention (current) drug therapy Erythrocyte Sedimentation Rate 3 Months M05.9 - Rheumatoid arthritis with rheumatoid factor, unspecified, Z79.899 - Other detention (current) drug therapy Medications: Discontinued methotrexate sodium Discontinued Reason: Doctor's Order 10 mg (4 x 2.5 mg) PO QWEEK 48 tabs 1RF M05.9 - Rheumatoid arthritis with rheumatoid factor, unspecified folic acid Discontinued Reason: Doctor's Order 1 mg PO DAILY 90 tabs 1RF Coding Level of Care Code Est Pt Level 4 (18144) Diagnoses Seropositive rheumatoid arthritis M05.9 Transaminitis R74.01
[2024-03-19 10:34] VITALS: BP 120/62; PULSE 69; O2SAT 95; BMI 31.8
== END 2024-03-19 11:09 | disposition home or self-care (01) ==
PROVIDERS: PCP General Practice; Visit Provider Student in an Organized Health Care Education/Training Program
DX: M05.79 Rheumatoid arthritis with rheumatoid factor of multiple sites without organ or systems involvement (principal); R74.01 Elevation of levels of liver transaminase levels
CPT/HCPCS: 99214

== ENCOUNTER → 2024-03-19 10:15 | Outpatient (BNVA) | payer OTHER, SELFPAY | PROVIDERS: PCP General Practice; Visit Provider Student in an Organized Health Care Education/Training Program | DX: M05.9 Rheumatoid arthritis with rheumatoid factor, unspecified (principal); R74.01 Elevation of levels of liver transaminase levels; Z79.899 Other long term (current) drug therapy | CPT/HCPCS: 99212 ==

== ENCOUNTER 2024-04-22 13:50 | Outpatient (REF) | payer OTHER, SELFPAY ==
[2024-04-22 15:29] LABS: Calcium 9.3 mg/dL (8.4-10.2)
[2024-04-22 15:42] LABS: Parathyroid Hormone Intact 133.2 pg/mL (8.7-77.1)
--- OUTSIDE RECORDS SUMMARY | 2024-04-22 16:07 | XMS_ITS | Clinical Summary ---
Author Organization [employer] Address [address] [place] [address] 7t [place] [address] Care Team Providers Care Work Station Support Specialist Name Role Phone Karlie Higgins MD Primary Care Provider [phone] Allergies Active Allergy Reactions Criticality Noted Date Comments Hydroxychloroquine Diarrhea Low 05/04/2022 Ibuprofen Low 05/04/2022 Naproxen Other 12/22/2022 Medications * This document contains information received from the source organization and may not represent a complete record from that organization. acetaminophen (Tylenol 8 Hour) 650 MG ER tablet TAKE 1 TABLET BY MOUTH EVERY 8 HOURS NEEDED 01/13/20 22 Active aspirin-acetami nophen-caffeine (Excedrin Migraine) 250-250-65 MG tablet take 2 tablet by mouth as needed for migraines Active folic acid (Folvite) 1 MG tablet TAKE 1 TABLET BY MOUTH DAILY 03/23/20 22 Active methotrexate 2.5 MG tablet TAKE 4 TABLETS BY MOUTH WEEKLY 04/11/19 23 Active hydrOXYzine pamoate (Vistaril) 25 MG capsule Take 1 capsule (25 mg) by mouth every 6 (six) hours if needed for itching for up to 10 days. 30 capsule 02/20/20 23 Active gabapentin (Neurontin) 100 MG capsule TAKE 1 CAPSULE BY MOUTH EVERY 8 HOURS 270 capsule 3 05/01/19 24 Active cholecalciferol (D3-1000) 25 MCG (1000 UT) capsule TAKE 2 CAPSULES BY MOUTH EVERY DAY 180 capsule 3 01/27/20 24 Active sertraline (Zoloft) 100 MG tabletIndicatio ns:Depressive disorder TAKE 2 TABLETS BY MOUTH EVERY DAY 180 tablet 3 01/31/20 24 Active tiZANidine (Zanaflex) 4 MG tablet TAKE 1 TABLET BY MOUTH EVERY DAY AT BEDTIME NEEDED 90 tablet 3 03/26/19 25 Active omeprazole (PriLOSEC) [address] capsuleIndicati ons:Gastroesoph ageal reflux disease, unspecified whether esophagitis present TAKE 1 CAPSULE BY MOUTH IN THE MORNING. DO NOT CRUSH OR CHEW 90 capsule 1 03/26/19 25 Active buPROPion (Wellbutrin) 75 MG tablet TAKE 1 TABLET BY MOUTH TWICE A DAY 180 tablet 04/07/19 25 Active tiZANidine (Zanaflex) 4 MG tablet TAKE 1 TABLET BY MOUTH AT BEDTIME NEEDED 90 tablet 3 01/03/20 23 025 Discontinued omeprazole (PriLOSEC) [address] capsuleIndicati ons:Gastroesoph ageal reflux disease, unspecified whether esophagitis present TAKE 1 CAPSULE BY MOUTH IN THE MORNING. DO NOT CRUSH OR CHEW 90 capsule 1 07/03/19 24 025 Discontinued buPROPion (Wellbutrin) 75 MG tablet TAKE 1 TABLET BY MOUTH TWICE A DAY 60 tablet 03/11/20 24 025 Discontinued Active Problems Problem Noted Date Diagnosed Date Myopia of both eyes with astigmatism 01/25/2023 Category 2 low vision of both eyes 10/02/2022 Night vision loss 10/02/2022 Vitreous floaters of both eyes 10/02/2022 Cervicalgia 05/04/2022 Assessment & Plan (05/04/2022 4:04 PM EST): Trial lidocaine cream If not helpful, consider capsacin next Degenerative tear of meniscus of left knee 05/04 Assessment & Plan (05/04/2022 4:04 PM EST): Surgery for repair 05/11/22 Goal to start walking daily again Rheumatoid arthritis 01/15/2022 Assessment & Plan (05/04/2022 4:04 PM EST): Follows with Annelise Smith every 4 months Continue methotrexate 2.5mg four tabs weekly Migraine 01/15/2022 Gastroesophageal reflux disease 01/15/2022 MDD (major depressive disorder) 01/15/2022 Assessment & Plan (02/20/2023 4:26 PM EST): Assessment: Patient presents with symptoms of depression. No risk for self-harm, SI, or HI. Reason for visit was to assess symptoms and provide support. Symptoms are in the context of strained relationship with her adult children, isolation, and debilitating medical conditions. Provided psychoeducation around depression and how to cope with symptoms. Patient will continue to engage in Op therapy. [facility] provider will add Wellbutrin 75 mg to medication regimen. At this time Nadira Garcia meets criteria for Visit Diagnoses: Problem List Items Addressed This Visit Other MDD (major depressive disorder) Patient ready to address current needs Yes Strengths include: ability to request additional support for MH. Nadira is in the action stage. PLAN: 1. Follow up with [facility]: Not recommended for follow-up 2. Patient goal is decrease depressive symptoms 3. Behavioral Recommendations a. Comply with new medication regimen b. Continue to engage in weekly therapy c. Utilize coping skills provided d. May reach out to [facility] for additional support, as needed Encounters Date Type Department Care Team Description 04/22/2024 Orders Only GENERIC EXTERNAL DATA DEPARTMENT Provider, Generic External Data 04/07/2024 Refill [facility] [address] [place] [address] Marla Quintero MD 03/26/2024 Refill [facility] MEDICINE [address] [place] [address] Karlie Higgins MD Gastroesophageal reflux disease, unspecified whether esophagitis present 03/09/2024 Refill [facility] [address] [place] [address] Radha Daniel FNP 03/04/2024 Orders Only GENERIC EXTERNAL DATA DEPARTMENT Provider, Generic External Data 01/31/2024 Refill [facility] MEDICINE [address] [place] [address] Karlie Higgins MD Depressive disorder 01/25/2024 Refill [facility] MED[facility]INE [address] [place] [address] Karlie Higgins MD from Last 3 Months Immunizations Name Administration Dates Next Due Influenza Whole 01/02/2019 Influenza injectable quadriv alent preservative free 01/12/2022,03/03/2020,01/02/2019,2017,02/02/2015 Influenza, IIV3, injectable 02/10/2021 Moderna Covid-19 Vaccine 12+ 08/23/2020,07/27/19 21 Tdap 02/10/2021,04/06/2011 Zoster, Recombinant 03/21/2022,01/15/2022 Social History Tobacco Use Types Packs/Day Years Used Date Smoking Tobacco: Former Cigarettes Smokeless Tobacco: Never Tobacco Cessation:Counseling Given: Not Answered Alcohol Use Standard Drinks/Week Comments Never 0 (1 standard drink = 0.6 oz pur e alcohol) Depression Answer Date Recorded Patient Health Questionnaire-9 Score 7 02/19/2023 Patient Health Questionnaire-9 Score 7 02/19/2023 Last PHQ-9: Questionnaire Data Not on file 1 04/21/2022 Depression Answer Date Recorded Patient Health Questionnaire-2 Score 4 02/19/2023 Comments Unknown Sex and Gender Information Value Date Recorded Sex Assigned at Female 01/22/2022 10:40 AM EDT Legal Sex Female 10:40 AM EDT Gender Identity Female 01/22/2022 10:40 AM EDT Sexual Orientation Straight 01/22/2022 10 :40 AM EDT Last Filed Vital Signs Vital Sign Reading Time Taken Comments Blood Pressure 149/83 02/19/2023 8:45 AM EST Pulse 82 02/19/2023 8:45 AM EST Temperature 36.4 ??C (97.6 ??F) 02/19/2023 8:45 AM ES T Respiratory Rate 16 02/19/2023 8:45 AM EST Oxygen Saturation 98% 02/19/2023 8:45 AM EST Inhaled Oxygen Concentration - - Weight 76.7 kg (169 lb) 02/19/2023 8:45 AM EST Height 157.5 cm (5' 2 ) 02/19/2023 8:45 AM EST Body Mass Index 30.91 02/19/2023 8:45 AM EST Plan of Treatment Health Maintenance Due Date Last Done Comments CT Colonography 1959 Colonoscopy 1959 Colorectal Cancer Screening 1959 FIT DNA/Cologuard 1959 FIT 1959 FOBT 1959 HIV Screening 1959 SDOH Screening 1959 Sigmoidoscopy 1959 Alcohol/Substance Use Screening 1971 Hepatitis C Screening 12/30/1977 Pap Smear 12/30/1980 Cervical Cancer Screening 12/30/1989 HPV/Cotest 12/30/1989 Mammogram 1999 Pneumococcal Vaccine: 50+ Years (1 of 1 - PCV) 12/30/2009 Depression Screening 02/20/2024 02/19/2023, 02/20/20 23 Tobacco Screening 02/20/2024 02/19/2023 DTaP/Tdap/Td Vaccines (3 - Td or Tdap) 02/10/2031 02/10/2021, 04/06/2011 RSV Patients and Patients Aged 60 years or older (1 - 1-dose 75+ series) 12/30/2034 Zoster Vaccines Completed 03/21/2022, 01/15/2022 COVID-19 Vaccine Completed 2023, 03/2020, 07/26/2020 Influenza Vaccine Completed 2023, , 02/10/2021, Additional history exists HIB Vaccines Aged Out No longer eligi ble based on patient's age to complete this topic HPV Vaccines Aged Out No longer eligi ble based on patient's age to complete this topic Hepatitis A Vaccines Aged Out No long er eligible based on patient's age to complete this topic Hepatitis B Vaccines Aged Out No long er eligible based on patient's age to complete this topic IPV Vaccines Aged Out No longer eligi ble based on patient's age to complete this topic Meningococcal Vaccine Aged Out No reji saravanan eligible based on patient's age to complete this topic RSV under 20 months Aged Out No longe r eligible based on patient's age to complete this topic Rotavirus Vaccines Aged Out No longer eligible based on patient's age to complete this topic Procedures Procedure Name Priority Date/Time Associated Diagnosis Comments PTH, INTACT WITHOUT CALCIUM Routine 04/22/2024 2:04 PM EST ALBUMIN Routine 04/22/2024 2:04 PM EST CALCIUM Routine 04/22/2024 2:04 PM EST C-REACTIVE PROTEIN Routine 03/04/2024 9: 21 AM EST COMPREHENSIVE METABOLIC PANEL Routine 03/04/2024 9:21 AM EST SED RATE BY MODIFIED WESTERGREN Routine 03/04/2024 9:21 AM EST CBC WITH AUTO DIFFERENTIAL Routine 03/04/2024 9:21 AM EST from Last 3 Months Results * (ABNORMAL) PTH, Intact Without Calcium (04/22/2024 2:04 PM EST) Parathyroid Hormone, Intact 133.2(H) 8.7 - 77.1 pg/mL [facility] 04/22/2024 2:04 PM EST 04/22/2024 2:04 PM EST Generic External Data Provider LAB BLOOD ORDERAB LES Final Result Performing Organization Address City/[facility] Co de Phone Number [facility] [address] [place] [phone] * Calcium (04/22/2024 2:04 PM EST) Calcium 9.3 8.4 - 10.2 mg/dL [facility] 04/22/2024 2:04 PM EST 04/22/2024 2:04 PM EST Generic External Data Provider LAB BLOOD ORDERAB LES Final Result Performing Organization Address City/[facility] Co de Phone Number [facility] [address] [place] [phone] * Albumin (04/22/2024 2:04 PM EST) Albumin Level 4.0 3.5 - 5.0 g/dL [facility] 04/22/2024 2:04 PM EST 04/22/2024 2:04 PM EST us Generic External Data Provider LAB BLOOD ORDERAB LES Final Result [facility] [address] [place], [place] [phone] * (ABNORMAL) CBC auto differential (03/04/2024 9:21 AM EST) White Blood Count 7.5 4.8 - 10.8 X10*3/uL [facility] Red Blood Count 4.28 4.20 - 5.50 X10*6/uL [facility] Hemoglobin 12.1 12.0 - 16.0 g/dl [facility] Hematocrit 39.1 37.0 - 47.0 % [facility] Mean Corpuscular Volume 91.4 80.0 - 98.0 fL [facility] Mean Corpuscular Hemoglobin 28.3 27.0 - 33.0 pg [facility] Mean Corpuscular HGB Conc 30.9(L) 31.0 - 35.0 g/dl [facility] Red Cell Distribution Width 14.7 11.0 - 16.0 % [facility] Platelet Count 225 160 - 400 X10*3/uL [facility] Mean Platelet Volume 10.8 9.4 - 12.3 fL [facility] Neutrophils Percent Auto 69.9 45 - 73 % [facility] Imm Gran Pct Auto 0.7(H) 0.0 - 0.4 % [facility] Lymphocytes Percent Auto 20.7 20 - 40 % [facility] Monocytes Percent Auto 6.1 2 - 11 % [facility] Eosinophils Percent Auto 2.1 0 - 4 % [facility] Basophils Percent Auto 0.5 0 - 2 % [facility] NRBC Pct Auto 0.0 0.0 - 0.2 /100WBC [facility] Neutrophils Absolute Auto 5.2 2.0 - 8.3 x10*3/uL [facility] Imm Gran Abs Auto 0.05(H) 0.00 - 0.03 X10*3/uL [facility] Lymphocytes Absolute Auto 1.6 1.2 - 4.9 X10*3/uL [facility] Monocytes Absolute Auto 0.5 0.1 - 1.2 X10*3/uL [facility] Eosinophils Absolute Auto 0.2 0.0 - 0.4 X10*3/uL [facility] Basophils Absolute Auto 0.0 0.0 - 0.2 X10*3/uL [facility] NRBC Abs Auto 0.000 0.0 - 0.012 X10*3/uL [facility] 03/04/2024 9:21 AM EST 03/04/2024 9:21 AM EST Generic External Data Provider LAB BLOOD ORDERAB LES Final Result Performing Organization Address [facility] Co de Phone Number [facility] [address] [place] [phone] * Sed Rate by Modified Moniren (03/04/2024 9:21 AM EST) Pathologist [facility] Erythrocyte Sedimentation Rate 18 0 - 20 MM/HR [facility] Comment:Patients with polycy themia and many hemoglobin abnormalitiesmay have depressed sed rates whereas patients with anemiamay have elevated sed rates. 03/04/2024 9:21 AM EST 03/04/2024 9:21 AM EST us Generic External Data Provider LAB BLOOD ORDERAB LES Final Result Performing Organization Address [facility] Co de Phone Number [facility] [address] [place] [phone] * (ABNORMAL) C-reactive Protein (03/04/2024 9:21 AM EST) Pathologist [facility] C Reactive Protein 0.65(H) < or = 0.50 mg/dL [facility] 03/04/2024 9:21 AM EST 03/04/2024 9:21 AM EST Generic External Data Provider LAB BLOOD ORDERAB LES Final Result Performing Organization Address City/[facility]/ZIP Co de Phone Number [facility] [address] [place] [phone] * (ABNORMAL) Comprehensive Metabolic Panel (03/04/2024 9:21 AM EST) Sodium 144 135 - 145 mmol/L [facility] Potassium 4.4 3.3 - 5.1 mmol/L [facility] Chloride 107 96 - 108 mmol/L [facility] Carbon Dioxide 30(H) 22 - 29 mmol/L [facility] Anion Gap 11(L) 12 - 20 [facility] Urea Nitrogen (BUN) 13 9 - 16 mg/dL [facility] Creatinine, Serum 0.84 0.5 - 1.4 mg/dL [facility] Estimated Glomerular Filt Rate >60 [facility] Comment:Chronic Kidney Disea se: Estimated GFR < 60 mL/min/1.36o8Ppezas Kidney Disease: Estimated GFR < 15 mL/min/1.73m2 Glucose 89 60 - 115 mg/dL [facility] Calcium 10.1 8.4 - 10.2 mg/dL [facility] Bilirubin, Total 0.2 0.0 - 1.0 mg/dL [facility] Aspartate Amino Transferase 37(H) 5 - 31 U/L [facility] Alanine Aminotransferase 39(H) 0 - 31 U/L [facility] Total Protein 7.7 6.5 - 8.0 g/dL [facility] Albumin Level 4.2 3.5 - 5.0 g/dL [facility] Alkaline Phosphatase 110 39 - 117 U/L [facility] 03/04/2024 9:21 AM EST 03/04/2024 9:21 AM EST us Generic External Data Provider LAB BLOOD ORDERAB LES Final Result Performing Organization Address City/[facility]/ZIP Co de Phone Number [facility] [address] [place] [phone] from Last [address] [facility] [id number] [place] Care Teams Work Station Support Specialist Relationship Specialty Start Date End Date Karlie Higgins MD [address] [place] [phone] PCP - General Family Medicine 01/12/22
--- OUTSIDE RECORDS SUMMARY | 2024-04-22 16:07 | XMS_ITS | Encounter Summary ---
Author Organization [employer] Address [address] [place] [address] 7 [place] [address] Care Team Providers Care Apprise Counselor Name Role Phone Karlie Higgins MD Primary Care Provider [phone] Reason for Visit * Reason Onset Date Comments Reschedule 02/28/2023 Encounter Details Date Type Department Care Team ([facility] st Contact Info) Description 02/28/2023 Telephone [facility] MEDICINE [address] [place], [place] [phone] Karlie Higgins MD [address] [place], [place] [phone] Reschedule Social History Tobacco Use Types Packs/Day Years Used Date Smoking Tobacco: Former Cigarettes Smokeless Tobacco: Never Alcohol Use Standard Drinks/Week Comments Never 0 [...] Orientation Straight 01/22/2022 10 :40 AM EDT documented as of this encounter Miscellaneous Notes * Telephone Encounter - Belén Nj - 02/28/2023 9:51 AM EST Tc from pt requesting r/s 03/06/2023 appt, television writer attempted to schedule, no availability at this moment for February, pt is also requesting a morning appt. documented in this encounter Plan of Treatment Not on file documented as of this encounter Visit Diagnoses Not on filedocumented in this encounter Additional Health Concerns Assessment Noted Time PHQ-9 Depression Total Score: 7 02/20/20 23 10:08 AM EST documented as of this encounter Care Teams Apprise Counselor Relationship Specialty Start Date End Date Karlie Higgins MD [address] [place] [address] PCP - General Family Medicine 01/12/22 documented as of this encounter
--- OUTSIDE RECORDS SUMMARY | 2024-04-22 16:07 | XMS_ITS | Encounter Summary ---
Author Organization [employer] Address [address] [place] [address] 7 [place] [address] Care Team Providers Care Regulatory Compliance Engineer Name Role Phone Karlie Higgins MD Primary Care Provider [phone] Reason for Visit * Reason Comments Med Refill Encounter Details Date Type Department Care Team ([facility] st Contact Info) Description 03/26/2024 Refill [facility] MEDICINE [address] [place], [place] [phone] Karlie Higgins MD [address] [place], [place] [phone] Gastroesophageal reflux disease, unspecified whether esophagitis present Social History Tobacco Use Types Packs/Day Years [...] AM EDT documented as of this encounter Plan of Treatment Not on file documented as of this encounter Visit Diagnoses Diagnosis Gastroesophageal reflux disease, unspecified whether esophagitis present documented in this encounter Additional Health Concerns Assessment Noted Time PHQ-9 Depression Total Score: 7 02/20/20 23 10:08 AM EST documented as of this encounter Care Teams Regulatory Compliance Engineer Relationship Specialty Start Date End Date Karlie Higgins MD [address] [place] [address] PCP - General Family Medicine 01/12/22 documented as of this encounter
--- OUTSIDE RECORDS SUMMARY | 2024-04-22 16:07 | XMS_ITS | Encounter Summary ---
Author Organization [employer] Address [address] [place] [address] [address] [place] [address] Care Team Providers Care Tile Picker Name Role Phone Karlie Higgins MD Primary Care Provider [phone] Reason for Visit * Reason Onset Date Comments Nurse Triage 02/18/2023 Encounter Details Date Type Department Care Team ([facility] st Contact Info) Description 02/18/2023 Telephone [facility] MEDICINE [address] [place], [place] [phone] Karlie Higgins MD [address] [place], [place] [phone] Nurse Triage Social History Tobacco Use Types Packs/Day Years [...] encounter Miscellaneous Notes * Telephone Encounter - Nikki Wilkinson RN - 02/18/2023 1:04 PM EST Called pt. She states that she does not feel like her Sertraline is working anymore. Pt. States shehas been on the same dose for years and over the past month she has been increasingly getting anxious and depressed on and off. Nothing has changed in pt. Life and no reason for mental status change.Pt is currently on 200mg of Sertraline once daily. Pt. Feels like she has emotions up and down, gets agitated easily, and gets weepy out of the blue. Pt. Does not have feelings of self harm or suicidal thoughts but feels extra jittery. Pt. Is a non smoker and has been going through 10 pieces of gumdaily. Pt. Wants to be seen jayson but no openings in regular clinics or with PCP on 02/19/23. Pt. Adv ised to go to walk in at 830am tomorrow. Uber set up to pick pt. Up at 8am to get to clinic by 820am. Protocol Used: Depression (Adult) Protocol-Based Disposition: See in Office on 02/19/23 in walk in at 830am. Uber set up for pt. Ridefor 8am. Video visit not offered Positive Triage Questions: * Depression is worsening (e.g.,sleeping poorly, less able to do activities of daily living) * Patient wants to be seen * History of manic-depression (bipolar disorder) * All higher-acuity triage questions were negative Care Advice Discussed: * Depression - Symptoms * Depression - Causes * Depression - Tips for Healthy Living * Depression - Stay Active * Telephone Encounter - Belén Nj - 02/18/2023 12:30 PM EST Symptom: Anxiety or Panic Attack Outcome: Transfer to a nurse or provider NOW! Reason: Acting confused The caller accepted this outcome documented in this encounter Plan of Treatment Not on file documented as of this encounter Visit Diagnoses Not on filedocumented in this encounter Care Teams Tile Picker Relationship Specialty Start Date End Date Karlie Higgins MD [address] [place] [address] [phone] PCP - General Family Medicine 01/12/22 documented as of this encounter
--- OUTSIDE RECORDS SUMMARY | 2024-04-22 16:07 | XMS_ITS | Encounter Summary ---
Author Organization [employer] Address [address] [place] [address] [address] [place] [address] Care Team Providers Care Intake Man Name Role Phone Karlie Higgins MD Primary Care Provider [phone] Encounter Details Date Type Department Care Team ([facility] st Contact Info) Description 04/27/2022 Abstract [facility] MEDICINE [address] [place], [place] [phone] Hadley Winters, LizzieD Social History Tobacco Use Types Packs/Day Years Used Date Smoking Tobacco: Never Assessed Comments Unknown Sex and Gender Information Value [...] on filedocumented in this encounter Care Teams Intake Man Relationship Specialty Start Date End Date Karlie Higgins MD [address] [place], [place] [phone] PCP - General Family Medicine 01/12/22 documented as of this encounter
--- OUTSIDE RECORDS SUMMARY | 2024-04-22 16:07 | XMS_ITS | Encounter Summary ---
Author Organization [employer] Address [address] [facility] [address]t [place] [address] Care Team Providers Care Shoemaking Cutter Name Role Phone Karlie Higgins MD Primary Care Provider [phone] Reason for Visit * Reason Comments Med Change Request Encounter Details Date Type Department Care Team ([facility] st Contact Info) Description 04/07/2024 Refill [facility] WALK[facility] [address] [place], [place] [phone] Marla Quintero MD [address] [place], [place] [phone] Social History Tobacco Use Types Packs/Day Years [...] documented as of this encounter Care Teams Shoemaking Cutter Relationship Specialty Start Date End Date Karlie Higgins MD [address] [place] [address] PCP - General Family Medicine 01/12/22 documented as of this encounter
--- OUTSIDE RECORDS SUMMARY | 2024-04-22 16:07 | XMS_ITS | Encounter Summary ---
Author Organization [employer] Address [address] [place] [address] [address] [place] [address] Care Team Providers Care Classified Advertising Manager Name Role Phone Karlie Higgins MD Primary Care Provider [phone] Reason for Visit * Reason Comments Med Refill Encounter Details Date Type Department Care Team (Late st Contact Info) Description 10/31/2022 Refill [facility] [address] [place] [address] Charlotte Casanova MD [address] [place], [place] [id number] Depressive disorder Social History Tobacco Use Types Packs/Day Years Used Date Smoking Tobacco: Former Cigarettes Smokeless Tobacco: Never Alcohol Use Standard Drinks/Week Comments Never 0 (1 standard drink = 0.6 oz pur e alcohol) Comments Unknown Sex and Gender Information Value Date Recorded Sex Assigned at Female 01/22/2022 10:40 AM EDT Legal Sex Female 10:40 AM EDT Gender Identity Female 01/22/2022 10:40 AM EDT Sexual Orientation Straight 01/22/2022 10 :40 AM EDT COVID-19 Exposure Response Date Recorded In the last 10 days, have yo u been in contact with someone who was confirmed or suspected to have Coronavirus/COVID-19? No / Unsure 10/02/2022 9:27 AM EDT documented as of this encounter Plan of Treatment Not on file documented as of this encounter Visit Diagnoses Diagnosis Depressive disorder Depressive disorder, not elsewhere classified documented in this encounter Care Teams Classified Advertising Manager Relationship Specialty Start Date End Date Karlie Higgins MD [address] [place] [address] PCP - General Family Medicine 01/12/22 documented as of this encounter
== END 2024-04-22 13:51 | disposition home or self-care (01) ==
LOC: HO.LAB 13:50
PROVIDERS: Internal Medicine Endocrinology, Diabetes & Metabolism; PCP General Practice; Visit Provider Student in an Organized Health Care Education/Training Program
DX: M05.9 Rheumatoid arthritis with rheumatoid factor, unspecified (principal); E21.3 Hyperparathyroidism, unspecified; Z79.899 Other long term (current) drug therapy; Z51.81 Encounter for therapeutic drug level monitoring
CPT/HCPCS: 36415; 82040; 82310; 83970; 99212

== ENCOUNTER 2024-04-22 14:09 | Outpatient (AMB) | payer OTHER, SELFPAY ==
--- NOTE | 2024-04-22 14:11 | A.OFFVIS_ITS ---
Vital Signs 04/22/24 14:13 Height 5 ft 1 in Weight 167 lb 8.821 oz BMI 31.7 BP 124/72 Blood Pressure Location Rt brachial Position Sitting Pulse 82 Pulse Source Pulse Oximeter Pulse Oximetry (%) 96 Oxygen Delivery Method Room Air Intake Visit Reasons: RA Intake Note: Patient presents here today for a follow-up on Rheumatoid Arthritis: Cook Station Required: No Accompanied by: Self / Same As Patient Allergies hydroxychloroquine [Plaquenil] Allergy (Intermediate, Verified 04/22/24 14:13) diarrhea ibuprofen Adverse Reaction (Mild, Verified 04/22/24 14:13) Nausea and Vomiting naproxen Adverse Reaction (Unknown, Verified 04/22/24 14:13) Gastrointestinal Upset Medication List - Last Reconciled 04/22/24 by Kassidy Herrera MD acetaminophen ER (Tylenol Arthritis Pain) 650 mg PO Q8H [id number] 250-250-65 mg (Excedrin Migraine) 1 tab PO Q4-6H PRN bupropion HCl 75 mg PO BID cholecalciferol (vitamin D3) 100 mcg PO DAILY gabapentin 100 mg PO Q8H omeprazole 20 mg PO DAILY sertraline 200 mg PO DAILY tizanidine 4 mg PO BEDTIME HPI Comments Details: Patient is a 63-year-old female with anxiety/depression who is here today for follow up of seropositive rheumatoid arthritis Interval History: Patient last seen 03/19/[address] Dow. At that time patient had transaminitis on 4 pills of methotrexate and this was held. Since then patient has had worsening joint pain involving her hands, wrists and feet. She also reports prolonged morning stiffness Rheumatologic History: dx 2018 +RF -ve CCP diarrhea with HCQ On MTX since 2019. Noted to have elevated trends amylases and her methotrexate was decreased to 4 pills however this transaminitis persisted and methotrexate held 02/2024 Current Rheumatology Medication(s): [facility] Medical History (Updated 04/22/24 @ 14:24 by Kassidy Herrera MD) Long-term use of leflunomide therapy Encounter for monitoring leflunomide therapy Osteoarthritis GERD (gastroesophageal reflux disease) Neck pain Hypoglycemia Seropositive rheumatoid arthritis Surgical History H/O: hysterectomy S/P lateral meniscus repair of left knee History of reversal of tubal ligation Hx of tubal ligation Hx of section History of lumpectomy of left breast Family History Mother No problems noted. Father No problems noted. Sister Diabetes Social History Household Members: None Housing: Apartment Alcohol intake: former Patient Tobacco Use Status: Former Tobacco user Tobacco use type: Cigarette Cigarettes Per Day: 30 Years Smoked: 20 e-Cigarette/Vaping Use: Never Used Review of Systems Const Details: Review of Systems Constitutional: Denies fever, chills, weight loss ENT: Denies vision changes, eye pain or eye redness, dental caries, dry mouth GI: Denies nausea, vomiting, diarrhea, abdominal pain, change in BM Pulm: Denies SOB, CORDOVA, hemoptysis, wheezing Cards: Denies chest pain, palpitations Skin: Denies Raynaud's, rash, nail changes, photosensitivity, 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 Well appearing and in no apparent painful distress HEENT Conjunctiva and sclera clear. ?Pupils equal round and reactive to light. ?No lymphadenopathy. ? CHEST/RESPIRATORY SYSTEM Normal respiratory effort and able to speak in complete sentences. ?Clear to auscultation bilaterally. ?No crackles, rales, rhonchi, wheezes heard. CARDIAC SYSTEM Regular rate and rhythm. ?S1 and S2 heard no murmurs. 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 No deformities noted. ?Prominent Heberden's nodes throughout hands. Swelling noted to the 2nd and 3rd digits bilaterally. Tenderness to palpation of the PIPs DIPs. Wrists: ?Full range of motion at the wrists. Tenderness to palpation of the left wrist without swelling or warmth. Normal exam of the right wrist. Elbows: Full range of motion without pain. No tenderness, weakness, swelling, increased warmth or erythema. Shoulders: Full range of motion without pain. No tenderness, weakness, swelling, increased warmth or erythema. Hips: Full range of motion without pain. Hip bursa: No tenderness to palpation Knees: ?Full range of motion. ?No tenderness, swelling, increased warmth or erythema.?No effusion or crepitations Ankles: Full range of motion. ?No tenderness, swelling, increased warmth or erythema.? Feet: ?Positive squeeze test on the left. With tenderness to palpation of the 1st MTP. Negative squeeze test on the right. Tender points:?No tenderness to palpation of the bilateral trapezius, supraspinatus, greater trochanters, anterior costochondral junctions, bilateral gluteal areas, bilateral suboccipital muscle insertions SKIN Skin intact without rashes. Results Reviewed Results Reviewed: Laboratory Tests 03/04/24 09:21 WBC 7.5 RBC 4.28 Hgb 12.1 Hct 39.1 Plt Count 225 ESR 18 Sodium 144 Potassium 4.4 Chloride 107 Carbon Dioxide 30 H BUN 13 Creatinine 0.84 Calcium 10.1 AST 37 H ALT 39 H Alkaline Phosphatase 110 C-Reactive Protein 0.65 H Total Protein 7.7 Labs done today awaiting results Assessment & Plan Assessment & Plan (1) Seropositive rheumatoid arthritis: Comment: dx 2019 +RF -ve CCP diarrhea with HCQ On MTX since 2019 Code(s): M05.9 - Rheumatoid arthritis with rheumatoid factor, unspecified Category: Medical Plan: #Seropositive RA Patient with seropositive rheumatoid arthritis currently in a flare of her disease due to not being on any medication. We will start leflunomide 10 mg Plan - Leflunomide 10mg daily - Follow up labs done today - RTC 3 months - Labs before next visit: CBC, CMP, ESR, CRP, Hepatitis profile and Tspot (2) Encounter for monitoring leflunomide therapy: Code(s): Z51.81 - Encounter for therapeutic drug level monitoring; Z79.69 - FPC (current) use of other immunomodulators and immunosuppressants Category: Medical Plan: #Long-term leflunomide Discussed with patient the benefits and risks of leflunomide for managing the rheumatic condition Benefits include: - Reduced pain, maintenance of remission and reduction of flares Risks include: - GI upset especially diarrhea, skin rash, cytopenias, hepatotoxicity, weight loss, neuropathy Initiation: ?CBC, BMP, LFTs, hepatitis-B and C serologies every 2-4 weeks for 3 months Monitoring: ?CBC, BMP, LFTs, hepatitis B and C serologies (3) Long-term use of leflunomide therapy: Code(s): Z79.69 - moth exterminator (current) use of other immunomodulators and immunosuppressants Category: Medical Plan: #Long-term leflunomide Discussed with patient the benefits and risks of leflunomide for managing the rheumatic condition Benefits include: - Reduced pain, maintenance of remission and reduction of flares Risks include: - GI upset especially diarrhea, skin rash, cytopenias, hepatotoxicity, weight loss, neuropathy Plan I spent 40 minutes reviewing the record and labs, taking a history, examining the patient, discussing the treatment plan and documenting in the medical record Orders: Orders Complete Blood Count Auto Diff 3 Months M05.9 - Rheumatoid arthritis with rheumatoid factor, unspecified, Z51.81 - Encounter for therapeutic drug level monitoring, Z79.69 - FPC (current) use of other immunomodulators and immunosuppressants Comprehensive Met. Panel 3 Months M05.9 - Rheumatoid arthritis with rheumatoid factor, unspecified, Z51.81 - Encounter for therapeutic drug level monitoring, Z79.69 - FPC (current) use of other immunomodulators and immunosuppressants C Reactive Protein 3 Months M05.9 - Rheumatoid arthritis with rheumatoid factor, unspecified, Z51.81 - Encounter for therapeutic drug level monitoring, Z79.69 - moth exterminator (current) use of other immunomodulators and immunosuppressants Erythrocyte Sedimentation Rate 3 Months M05.9 - Rheumatoid arthritis with rheumatoid factor, unspecified, Z51.81 - Encounter for therapeutic drug level monitoring, Z79.69 - moth exterminator (current) use of other immunomodulators and immunosuppressants Hepatitis A,B,C Profile 3 Months M05.9 - Rheumatoid arthritis with rheumatoid factor, unspecified, Z51.81 - Encounter for therapeutic drug level monitoring, Z79.69 - moth exterminator (current) use of other immunomodulators and immunosuppressants T Spot TB 3 Months M05.9 - Rheumatoid arthritis with rheumatoid factor, unspecified, Z51.81 - Encounter for therapeutic drug level monitoring, Z79.69 - FPC (current) use of other immunomodulators and immunosuppressants Medications: New leflunomide 10 mg PO DAILY 90 tabs 0RF M05.9 - Rheumatoid arthritis with rheumatoid factor, unspecified, Z51.81 - Encounter for therapeutic drug level monitoring, Z79.69 - FPC (current) use of other immunomodulators and immunosuppressants Coding Level of Care Code Est Pt Level 5 (30698) Complex EM visit Add On G2211 Diagnoses Seropositive rheumatoid arthritis M05.9 Encounter for monitoring leflunomide therapy Z51.81; Z79.69 Long-term use of leflunomide therapy Z79.69
[2024-04-22 14:13] VITALS: BP 124/72; PULSE 82; O2SAT 96; BMI 31.7
== END 2024-04-22 14:29 | disposition home or self-care (01) ==
PROVIDERS: PCP General Practice; Visit Provider Student in an Organized Health Care Education/Training Program
DX: M05.79 Rheumatoid arthritis with rheumatoid factor of multiple sites without organ or systems involvement (principal); Z51.81 Encounter for therapeutic drug level monitoring; Z79.69 Long term (current) use of other immunomodulators and immunosuppressants
CPT/HCPCS: 99215; G2211

== ENCOUNTER 2024-07-13 09:39 | Outpatient (REF) | payer OTHER, SELFPAY ==
[2024-07-13 10:00] LABS: MANUAL DIFF FLAG NO
[2024-07-13 10:36] LABS: Basophils Percent Auto 0.5 % (0-2); Eosinophils Absolute Auto 0.1 X10*3/uL (0.0-0.4); Eosinophils Percent Auto 1.8 % (0-4); Hematocrit 37.9 % (37.0-47.0); Hemoglobin 11.6 g/dl (12.0-16.0); Imm Gran Abs Auto 0.03 X10*3/uL (0.00-0.03); Imm Gran Pct Auto 0.4 % (0.0-0.4); Lymphocytes Percent Auto 26.4 % (20-40); Mean Corpuscular HGB Conc 30.6 g/dl (31.0-35.0); Mean Corpuscular Hemoglobin 26.8 pg (27.0-33.0); Mean Corpuscular Volume 87.5 fL (80.0-98.0); Monocytes Absolute Auto 0.4 X10*3/uL (0.1-1.2); Monocytes Percent Auto 5.6 % (2-11); Neutrophils Absolute Auto 5.1 x10*3/uL (2.0-8.3); Neutrophils Percent Auto 65.3 % (45-73); Platelet Count 213 X10*3/uL (160-400); Red Blood Count 4.33 X10*6/uL (4.20-5.50); Red Cell Distribution Width 14.7 % (11.0-16.0); White Blood Count 7.7 X10*3/uL (4.8-10.8)
[2024-07-13 11:03] LABS: Alanine Aminotransferase 22 U/L (0-31); Albumin Level 4.3 g/dL (3.5-5.0); Alkaline Phosphatase 88 U/L (39-117); Anion Gap 12 (12-20); Aspartate Amino Transferase 31 U/L (5-31); Bilirubin Total 0.2 mg/dL (0.0-1.0); Blood Urea Nitrogen 12 mg/dL (9-16); C Reactive Protein 0.28 mg/dL (< or = 0.50); Calcium 9.5 mg/dL (8.4-10.2); Carbon Dioxide 30 mmol/L (22-29); Chloride 105 mmol/L (96-108); Estimated Glomerular Filt Rate > 60; Glucose Random 95 mg/dL (60-115); Potassium 4.7 mmol/L (3.3-5.1); Sodium 142 mmol/L (135-145); Total Protein 7.6 g/dL (6.5-8.0)
[2024-07-13 11:11] LABS: Erythrocyte Sedimentation Rate 16 MM/HR (0-20)
[2024-07-13 12:57] LABS: HBc Num1 0.07 S/CO (0.00-0.79); HBsAGNum1 0.38 S/CO (0.00-0.99); Hepatitis B Core Antibody Nonreactive (Nonreactive); Hepatitis B Surface Antigen Negative (Negative); ~HepC Num1 0.19 S/CO (0.00-0.79); ~Hepatitis B Surface Antibody NONREACTIVE (Nonreactive); ~Hepatitis C Antibody Nonreactive (Nonreactive)
[2024-07-14 08:40] LABS: Hepatitis A Antibody IgM 0.13 Index (0-0.79); ~Hepatitis A Antibody IgM Nonreactive (Nonreactive)
[2024-07-16 06:44] LABS: TS Negative Control Passed; TS Panel A 0; TS Panel B 0; TS Positive Control Passed; TSpotTB Negative (Negative)
== END 2024-07-13 09:40 | disposition home or self-care (01) ==
LOC: HO.LAB 09:39
PROVIDERS: PCP General Practice; Visit Provider Student in an Organized Health Care Education/Training Program
DX: M05.9 Rheumatoid arthritis with rheumatoid factor, unspecified (principal); Z79.69 Long term (current) use of other immunomodulators and immunosuppressants; Z51.81 Encounter for therapeutic drug level monitoring
CPT/HCPCS: 36415; 80053; 85025; 85652; 86140; 86481; 86704; 86706; 86709; 86803; 87340

== ENCOUNTER 2024-07-17 10:29 | Outpatient (AMB) | payer OTHER, SELFPAY ==
--- NOTE | 2024-07-17 10:33 | A.OFFVIS_ITS ---
Vital Signs 07/17/24 10:43 Height 5 ft Weight 166 lb 3.657 oz BMI 32.5 BP 122/70 Blood Pressure Location Lt brachial Position Sitting Pulse 87 Pulse Source Pulse Oximeter Temp 97 F Pulse Oximetry (%) 97 Oxygen Delivery Method Room Air Intake Visit Reasons: RA Intake Note: Patient presents for RA follow up. Allergies hydroxychloroquine [Plaquenil] Allergy (Intermediate, Verified 07/17/24 10:41) diarrhea leflunomide Allergy (Mild, Verified 07/17/24 10:41) Diarrhea ibuprofen Adverse Reaction (Mild, Verified 07/17/24 10:41) Nausea and Vomiting naproxen Adverse Reaction (Unknown, Verified 07/17/24 10:41) Gastrointestinal Upset amoxicillin clavulanate Allergy (Severe, Uncoded 07/17/24 10:41) Diarrhea Medication List - Last Reconciled 07/17/24 by Kassidy Herrera MD acetaminophen ER (Tylenol Arthritis Pain) 650 mg PO Q8H abprzig-ffwsayldcqkqe-pgdxwfln 250-250-65 mg (Excedrin Migraine) 1 tab PO Q4-6H PRN bupropion HCl 75 mg PO BID cholecalciferol (vitamin D3) 100 mcg PO DAILY etanercept (Enbrel SureClick) 50 mg subcut QWEEK gabapentin 100 mg PO Q8H omeprazole 20 mg PO DAILY sertraline 200 mg PO DAILY tizanidine 4 mg PO BEDTIME HPI Comments Details: Patient is a 63-year-old female with anxiety/depression who is here today for follow up of seropositive rheumatoid arthritis Interval History: Patient last seen 04/22/24 with me. At that time she was having worsening disease due to holding methotrexate in the setting of transaminitis. She was started on leflunomide 10 mg Had side effects and so was changed to Enbrel Since starting the Enbrel she has been doing well Denies further joint pain and minimal stiffness Rheumatologic History: dx 2018 +RF -ve CCP diarrhea with HCQ On MTX since 2019. Noted to have elevated trends amylases and her methotrexate was decreased to 4 pills however this transaminitis persisted and methotrexate held 02/2024 Lefunomide 10mg 03/2024. GI side effects Enbrel 03/2024. Effective Current Rheumatology Medication(s): Enbrel 50mg SC weekly [facility] Medical History (Updated 04/30/24 @ 13:55 by Kassidy Herrera MD) Osteoarthritis GERD (gastroesophageal reflux disease) Neck pain Hypoglycemia Seropositive rheumatoid arthritis Surgical History H/O: hysterectomy S/P lateral meniscus repair of left knee History of reversal of tubal ligation Hx of tubal ligation Hx of section History of lumpectomy of left breast Family History Mother No problems noted. Father No problems noted. Sister Diabetes Social History Household Members: None Housing: Apartment Alcohol intake: former Patient Tobacco Use Status: Former Tobacco user Tobacco use type: Cigarette Cigarettes Per Day: 30 Years Smoked: 20 e-Cigarette/Vaping Use: Never Used Review of Systems Const Details: Review of Systems Constitutional: Denies fever, chills, weight loss ENT: Denies vision changes, eye pain or eye redness, dental caries, dry mouth GI: Denies nausea, vomiting, diarrhea, abdominal pain, change in BM Pulm: Denies SOB, CORDOVA, hemoptysis, wheezing Cards: Denies chest pain, palpitations Skin: Denies Raynaud's, rash, nail changes, photosensitivity, [employer]: Denies headaches, weakness, paresthesias, recurrent falls MSK: as per HPI All other systems reviewed and are unremarkable except noted above Physical Exam Vital Signs: Last Vital Signs Temp 97 F 07/17/24 10:43 Pulse 87 07/17/24 10:43 BP 122/70 07/17/24 10:43 Pulse Ox 97 07/17/24 10:43 Oxygen Delivery Method Room Air 07/17/24 10:43 BMI result Body Mass Index 32.5 Vital signs reviewed Physical Examination CONSTITUITIONAL Patient alert and cooperative. Well appearing and in no apparent painful distress HEENT Conjunctiva and sclera clear. ?Pupils equal round and reactive to light. ?No lymphadenopathy. ? CHEST/RESPIRATORY SYSTEM Normal respiratory effort and able to speak in complete sentences. ?Clear to auscultation bilaterally. ?No crackles, rales, rhonchi, wheezes heard. CARDIAC SYSTEM Regular rate and rhythm. ?S1 and S2 heard no murmurs. ?Radial pulses intact bilaterally MSK Hands: ?Able to make a fist. No synovitis noted to the MCPs, PIPs or DIPs. ?No tenderness to palpation of these joints. Significant herbedens nodes Wrists: ?Full range of motion at the wrists without pain. ?No tenderness to palpation or synovitis noted to the wrists. Elbows: Full range of motion without pain. No tenderness, weakness, swelling, increased warmth or erythema. Shoulders: Full range of active range of motion without pain. No tenderness, weakness, swelling, increased warmth or erythema. Hips: Full range of motion without pain. Hip bursa: No tenderness to palpation Knees: ?Full range of motion. ?No tenderness, swelling, increased warmth or erythema.?Bilateral crepitations Ankles: Full range of motion. ?No tenderness, swelling, increased warmth or erythema.? Feet: ?Negative squeeze test. ?No tenderness to palpation or swelling of the MTPs. Tender points:?No tenderness to palpation of the bilateral trapezius, supraspinatus, greater trochanters, anterior costochondral junctions, bilateral gluteal areas, bilateral suboccipital muscle insertions SKIN Skin intact without rashes. Results Reviewed Results Reviewed: Laboratory Tests 03/04/24 07/13/24 09:21 09:56 WBC 7.7 RBC 4.33 Hgb 11.6 L Hct 37.9 Plt Count 213 ESR 16 Sodium 142 Potassium 4.7 Chloride 105 Anion Gap 12 BUN 12 Creatinine 0.78 AST 37 H 31 ALT 39 H 22 Alkaline Phosphatase 88 C-Reactive Protein 0.65 H 0.28 Immunology Labs 11/18/18 15:25 Rheumatoid Factor 18.1 H Cycl Citrul Peptide IgG <16 TRACY Screen Negative Infectious labs 07/13/24 09:56 Hepatitis A IgM Ab Nonreactive Hep Bs Antigen Negative Hep Bs Antibody NONREACTIVE Hep B Core Total Ab Nonreactive Hepatitis C Ab (EIA) Nonreactive TB Test (T-Spot) Com Negative Assessment & Plan Assessment & Plan (1) Seropositive rheumatoid arthritis: Comment: dx 2019 +RF -ve CCP diarrhea with HCQ On MTX since 2019 Code(s): M05.9 - Rheumatoid arthritis with rheumatoid factor, unspecified Category: Medical Plan: #Seropositive Rheumatoid Arthritis Patient is a 63 y.o. female with seropositive rheumatoid arthritis currently in remission on Enbrel. Plan - Enbrel 50mg SC every week - RTC 4 months - Labs before next visit: CBC, CMP, ESR, CRP (2) Encounter for monitoring of etanercept therapy: Code(s): Z51.81 - Encounter for therapeutic drug level monitoring; Z79.620 - longterm (current) use of immunosuppressive biologic Plan: #Long-term Use of TNF Inhibitors: Enbrel Discussed with the patient the benefits and risks of TNF inhibitors for the management of the rheumatic condition Benefits include reduce pain, maintenance of remission and reduction of flares as well as progression of the disease Risks include injection sites/infusion reactions, serious infections (such as bacterial infections, opportunistic infections), malignancy, delaminating syndromes, autoimmune phenomena, CHF exacerbations, palmar plantar psoriasis and cytopenias Recommended rotating injection sites, and holding medication during and for up to 1 week after resolution of a febrile illness or open skin wound Plan I spent 30 minutes reviewing the record and labs, taking a history, examining the patient, discussing the treatment plan and documenting in the medical record Coding Level of Care Code Est Pt Level 4 (43602) Complex EM visit Add On G2211 Diagnoses Seropositive rheumatoid arthritis M05.9 Encounter for monitoring of etanercept therapy Z51.81; Z79.620
[2024-07-17 10:43] VITALS: BP 122/70; PULSE 87; TEMP 36.1; O2SAT 97; BMI 32.5
--- OUTSIDE RECORDS SUMMARY | 2024-07-17 11:03 | XMS_ITS | Encounter Summary ---
Author Organization [employer] Address [address] [place] [address] [address] [place] [address] Care Team Providers Care Electronic Data Processing Auditor Name Role Phone Karlie Higgins MD Primary Care Provider [phone] Encounter Details Date Type Department Care Team (Late st Contact Info) Description 04/27/2022 Abstract [facility] [address] [place] [address] Hadley Winters PharmD Social History Tobacco Use Types Packs/Day Years Used Date Smoking Tobacco: Never Assessed Comments Unknown Sex and Gender Information Value Date Recorded Sex Assigned at Female 01/22/2022 10:40 AM EDT Legal Sex Female 10:40 AM EDT Gender Identity Female 01/22/2022 10:40 AM EDT Sexual Orientation Straight 01/22/2022 10 :40 AM EDT documented as of this encounter Plan of Treatment Upcoming Encounters Date Type Department Care Team (Late st Contact Info) Description 09/09/2024 10:00 AM EDT Office Visit [facility] [address] [place] [address] Maximino, Comfort, OD [address] [place] [address] documented as of this encounter Visit Diagnoses Not on filedocumented in this encounter Care Teams Electronic Data Processing Auditor Relationship Specialty Start Date End Date Karlie Higgins MD [address] [place] [address] PCP - General Family Medicine 01/12/22 documented as of this encounter
--- OUTSIDE RECORDS SUMMARY | 2024-07-17 11:03 | XMS_ITS | Encounter Summary ---
Author Organization [employer] Address [address] [facility] [address] [place] [address] Care Team Providers Care Professional Tutor Name Role Phone Karlie Higgins MD Primary Care Provider [phone] Reason for Visit * Reason Comments Med Refill Encounter Details Date Type Department Care Team (Late st Contact Info) Description 06/18/2024 Refill [facility] [address] [place] [address] Barbara Moctezuma DO [address] [place] [address] Social History Tobacco Use Types Packs/Day Years [...] Description 09/09/2024 10:00 AM EDT Office Visit [facility] [address] [place] [address] Comfort Stanton, OD [address] [place], [place] [phone] documented as of this encounter Visit Diagnoses Not on filedocumented in this encounter Additional Health Concerns Assessment Noted Time PHQ-9 Depression Total Score: 7 02/20/20 23 10:08 AM EST documented as of this encounter Care Teams Professional Tutor Relationship Specialty Start Date End Date Karlie Higgins MD [address] [place] [address] PCP - General Family Medicine 01/12/22 documented as of this encounter
--- OUTSIDE RECORDS SUMMARY | 2024-07-17 11:03 | XMS_ITS | Encounter Summary ---
Author Organization [employer] Address [address] [facility] [address] [place] [address] Care Team Providers Care Education And Training Manager Name Role Phone Karlie Higgins MD Primary Care Provider [phone] Reason for Visit * Reason Comments Med Refill Encounter Details Date Type Department Care Team ([facility] Contact Info) Description 10/31/2022 Refill [facility] [address] [place] [address] Charlotte Casanova MD [address] [place] [address] Depressive disorder Social History Tobacco Use Types [...] Upcoming Encounters Date Type Department Care Team ([facility] Contact Info) Description 09/09/2024 10:00 AM EDT Office Visit [facility] [address] [place] [address] Comfort Stanton, OD [address] [place] [address] documented as of this encounter Visit Diagnoses Diagnosis Depressive disorder Depressive disorder, not elsewhere classified documented in this encounter Care Teams Education And Training Manager Relationship Specialty Start Date End Date Karlie Higgins MD [address] [place] [address] PCP - General Family Medicine 01/12/22 documented as of this encounter
--- OUTSIDE RECORDS SUMMARY | 2024-07-17 11:03 | XMS_ITS | Encounter Summary ---
Author Organization [email or web address] Address [address] [place] [address] [address]t [place] [address] Care Team Providers Care Humidifier Maintenance Worker Name Role Phone Karlie Higgins MD Primary Care Provider Encounter Details Date Type Department Care Team (Late Contact Info) Description 07/13/2024 Orders Only GENERIC EXTERNAL DATA DEPARTMENT Provider, Generic External Data Social History Tobacco Use Types Packs/Day Years [...] Upcoming Encounters Date Type Department Care Team ([facility] Contact Info) Description 09/09/2024 10:00 AM EDT Office Visit [facility] [address] [place] [address] Maximino, Comfort, OD [address] [place] [address] documented as of this encounter Procedures Procedure Name Priority Date/Time Associated Diagnosis Comments T-SPOT(R).TB Routine 07/13/2024 9:56 AM EDT HEPATITIS PANEL, GENERAL Routine 07/13/2024 9:56 AM EDT CBC WITH AUTO DIFFERENTIAL Routine 07/13/2024 9:56 AM EDT SED RATE BY MODIFIED WESTERGREN Routine 07/13/2024 9:56 AM EDT C-REACTIVE PROTEIN Routine 07/13/2024 9: 56 AM EDT COMPREHENSIVE METABOLIC PANEL Routine 07/13/2024 9:56 AM EDT documented in this encounter Results * T-SPOT??.TB (07/13/2024 9:56 AM EDT) T Spot TB Negative Negative [facility] Comment:A negative test resu lt does not exclude the possibilityof exposure to or infection with Mycobacteriumtuberculosis (M. tuberculosis). Patients with recentexposure to TB infected individuals exhibiting anegative T-SPOT.TB result should be considered forretesting within 6 weeks or if other relevant clinicalsymptoms indicate. Results from T-SPOT.TB testing mustbe used in conjunction with each individual'sepidemiological history, current medical status,and results of other diagnostic evaluations.The T-SPOT.TB test is qualitative and results arereported as positive, borderline, or negative, giventhat the test controls perform as expected. In linewith the Centers for Disease Control and Prevention's2010 recommendation to report quantitative measurementsalongside the qualitative result, the laboratoryprovides spot counts for informational purposes only.The T-SPOT.TB test should not be interpreted as aquantitative test. TS PANEL A 0 [facility] TS PANEL B 0 [facility] Negative Control Passed [facility] Positive Control Passed [facility] Comment:For additional infor dave, please refer [email or web address].[employer]/faq/UGD666(This link is being provided for informational/educational purposes only.)THIS TEST WAS PERFORMED AT:[id number] [place] [address]JJCWAPVRICARDO HE MD,PHD 07/13/2024 9:56 AM EDT 07/13/2024 9:56 AM EDT Generic External Data Provider LAB BLOOD ORDERAB LES Final Result Performing Organization Address [facility] de Phone Number [facility] [address] [place] [address] [phone] * Hepatitis Panel, General (07/13/2024 9:56 AM EDT) Pathologist [facility] Hepatitis A IgM Nonreactive Nonreactive [facility] Comment:IgM antibodies to PETERS V not detected; does not exclude earlyacute or recovered HAV infection. ~Hepatitis B Surface Antibody NONREACTIVE Nonreactive [facility] Comment:Nonreactive: < 8.00 mIU/mL Hepatitis B Core Antibody Nonreactive Nonreactive [facility] Hepatitis C Antibody Nonreactive Nonreactive [facility] Comment:Antibodies to HCV no t detected; does not exclude early acuteHCV infection. Hepatitis B Surface Ag Negative Negative [facility] 07/13/2024 9:56 AM EDT 07/13/2024 9:56 AM EDT Generic External Data Provider LAB BLOOD ORDERAB LES Final Result Performing Organization Address [facility] Co de Phone Number [facility] [address] [place] [address] [phone] * Sed Rate by Modified Moniren (07/13/2024 9:56 AM EDT) Erythrocyte Sedimentation Rate 16 0 - 20 MM/HR [facility] Comment:Patients with polycy themia and many hemoglobin abnormalitiesmay have depressed sed rates whereas patients with anemiamay have elevated sed rates. 07/13/2024 9:56 AM EDT 07/13/2024 9:56 AM EDT us Generic External Data Provider LAB BLOOD ORDERAB LES Final Result Performing Organization Address [facility] Co de Phone Number [facility] [address] [place] [address] [phone] * C-reactive Protein (07/13/2024 9:56 AM EDT) C Reactive Protein 0.28 < or = 0.50 mg/dL [facility] 07/13/2024 9:56 AM EDT 07/13/2024 9:56 AM EDT Generic External Data Provider LAB BLOOD ORDERAB LES Final Result Performing Organization Address [facility] Phone Number [facility] [address] [place] [address] [phone] * (ABNORMAL) Comprehensive Metabolic Panel (07/13/2024 9:56 AM EDT) Pathologist [facility] Sodium 142 135 - 145 mmol/L [facility] Potassium 4.7 3.3 - 5.1 mmol/L [facility] Chloride 105 96 - 108 mmol/L [facility] Carbon Dioxide 30(H) 22 - 29 mmol/L [facility] Anion Gap 12 12 - 20 [facility] Urea Nitrogen (BUN) 12 9 - 16 mg/dL [facility] Creatinine, Serum 0.78 0.5 - 1.4 mg/dL [facility] Estimated Glomerular Filt Rate >60 [facility] Comment:Chronic Kidney Disea se: Estimated GFR < 60 mL/min/1.71x9Posrob Kidney Disease: Estimated GFR < 15 mL/min/1.73m2 Glucose 95 60 - 115 mg/dL [facility] Calcium 9.5 8.4 - 10.2 mg/dL [facility] Bilirubin, Total 0.2 0.0 - 1.0 mg/dL [facility] Aspartate Amino Transferase 31 5 - 31 U/L [facility] Alanine Aminotransferase 22 0 - 31 U/L [facility] Total Protein 7.6 6.5 - 8.0 g/dL [facility] Albumin Level 4.3 3.5 - 5.0 g/dL [facility] Alkaline Phosphatase 88 39 - 117 U/L [facility] 07/13/2024 9:56 AM EDT 07/13/2024 9:56 AM EDT us Generic External Data Provider LAB BLOOD ORDERAB LES Final Result [facility] [address] [place] [address] [phone] * (ABNORMAL) CBC auto differential (07/13/2024 9:56 AM EDT) White Blood Count 7.7 4.8 - 10.8 X10*3/uL [facility] Red Blood Count 4.33 4.20 - 5.50 X10*6/uL [facility] Hemoglobin 11.6(L) 12.0 - 16.0 g/dl [facility] Hematocrit 37.9 37.0 - 47.0 % [facility] Mean Corpuscular Volume 87.5 80.0 - 98.0 fL [facility] Mean Corpuscular Hemoglobin 26.8(L) 27.0 - 33.0 pg [facility] Mean Corpuscular HGB Conc 30.6(L) 31.0 - 35.0 g/dl [facility] Red Cell Distribution Width 14.7 11.0 - 16.0 % [facility] Platelet Count 213 160 - 400 X10*3/uL [facility] Mean Platelet Volume 11.0 9.4 - 12.3 fL [facility] Neutrophils Percent Auto 65.3 45 - 73 % [facility] Imm Gran Pct Auto 0.4 0.0 - 0.4 % [facility] Lymphocytes Percent Auto 26.4 20 - 40 % [facility] Monocytes Percent Auto 5.6 2 - 11 % [facility] Eosinophils Percent Auto 1.8 0 - 4 % [facility] Basophils Percent Auto 0.5 0 - 2 % [facility] NRBC Pct Auto 0.0 0.0 - 0.2 /100WBC [facility] Neutrophils Absolute Auto 5.1 2.0 - 8.3 x10*3/uL [facility] Imm Gran Abs Auto 0.03 0.00 - 0.03 X10*3/uL [facility] Lymphocytes Absolute Auto 2.0 1.2 - 4.9 X10*3/uL [facility] Monocytes Absolute Auto 0.4 0.1 - 1.2 X10*3/uL [facility] Eosinophils Absolute Auto 0.1 0.0 - 0.4 X10*3/uL [facility] Basophils Absolute Auto 0.0 0.0 - 0.2 X10*3/uL [facility] NRBC Abs Auto 0.000 0.0 - 0.012 X10*3/uL [facility] 07/13/2024 9:56 AM EDT 07/13/2024 9:56 AM EDT us Generic External Data Provider LAB BLOOD ORDERAB LES Final Result Performing Organization Address City/State/[facility] Co de Phone Number [facility] [address] [place] [address] [phone] documented in this encounter Visit Diagnoses Not on filedocumented in this encounter Additional Health Concerns Assessment Noted Time PHQ-9 Depression Total Score: 7 02/20/20 23 10:08 AM EST documented as of this encounter Care Teams Humidifier Maintenance Worker Relationship Specialty Start Date End Date Karlie Higgins MD [address] [place] [address] PCP - General Family Medicine 01/12/22 documented as of this encounter
--- OUTSIDE RECORDS SUMMARY | 2024-07-17 11:03 | XMS_ITS | Encounter Summary ---
Author Organization [employer] Address [address] [facility] [address] [place] [address] Care Team Providers Care Office Associate Name Role Phone Karlie Higgins MD Primary Care Provider [phone] Reason for Visit * Reason Comments Med Refill Encounter Details Date Type Department Care Team (Late st Contact Info) Description 06/18/2024 Refill [facility] [address] [place] [address] Barbara Moctezuma DO [address] [place] [address] Social History Tobacco Use Types Packs/Day Years [...] Description 09/09/2024 10:00 AM EDT Office Visit [facility] [address] [place] [address] Comfort Stanton, OD [address] [place], [place] [phone] documented as of this encounter Visit Diagnoses Not on filedocumented in this encounter Additional Health Concerns Assessment Noted Time PHQ-9 Depression Total Score: 7 02/20/20 23 10:08 AM EST documented as of this encounter Care Teams Office Associate Relationship Specialty Start Date End Date Karlie Higgins MD [address] [place] [address] PCP - General Family Medicine 01/12/22 documented as of this encounter
--- OUTSIDE RECORDS SUMMARY | 2024-07-17 11:03 | XMS_ITS | Encounter Summary ---
Author Organization [employer] Address [address] [place] [address] 7[address] [place] [address] Care Team Providers Care Pe Electrical Engineer Name Role Phone Karlie Higgins MD Primary Care Provider [phone] Reason for Visit * Reason Onset Date Comments Nurse Triage 02/18/2023 Encounter Details Date Type Department Care Team ([facility] st Contact Info) Description 02/18/2023 Telephone [facility] MEDICINE [address] [place], [place] [phone] Karlie Higgins MD [address] [place], [place] [phone] Nurse Triage Social History Tobacco Use Types [...] documented in this encounter Plan of Treatment Upcoming Encounters Date Type Department Care Team (Late st Contact Info) Description 09/09/2024 10:00 AM EDT Office Visit [facility] OPTOMETRY [address] [place] [address], [place] [address] Comfort Stanton, OD [address] [place] [address] documented as of this encounter Visit Diagnoses Not on filedocumented in this encounter Care Teams Pe Electrical Engineer Relationship Specialty Start Date End Date Karlie Higgins MD [address] [place] [address] PCP - General Family Medicine 01/12/22 documented as of this encounter
--- OUTSIDE RECORDS SUMMARY | 2024-07-17 11:03 | XMS_ITS | Clinical Summary ---
Author Organization [employer] Address [address] [facility] 7t [place] [address] Care Team Providers Care Limerock Tower Loader Name Role Phone Karlie Higgins MD Primary Care Provider [phone] Allergies Active Allergy Reactions Criticality Noted Date Comments Hydroxychloroquine Diarrhea Low 05/04/2022 Ibuprofen Low 05/04/2022 Naproxen Other 12/22/2022 Medications * This document contains information received from the source organization and may not represent a complete record from that organization. acetaminophen (Tylenol 8 Hour) 650 MG ER tablet TAKE 1 TABLET BY MOUTH EVERY 8 HOURS NEEDED 01/13/20 22 Active aspirin-acetam inophen-caffei ne (Excedrin Migraine) 250-250-65 MG tablet take 2 tablet by mouth as needed for migraines Active folic acid (Folvite) 1 MG tablet TAKE 1 TABLET BY MOUTH DAILY 03/23/20 22 Active hydrOXYzine pamoate (Vistaril) 25 MG capsule Take 1 capsule (25 mg) by mouth every 6 (six) hours if needed for itching for up to 10 days. 30 capsule 02/20/20 23 Active gabapentin (Neurontin) 100 MG capsule TAKE 1 CAPSULE BY MOUTH EVERY 8 HOURS 270 capsule 3 05/01/19 24 Active cholecalcifero l (D3-1000) 25 MCG (1000 UT) capsule TAKE 2 CAPSULES BY MOUTH EVERY DAY 180 capsule 3 01/27/20 24 Active sertraline (Zoloft) 100 MG tabletIndicati ons:Depressive disorder TAKE 2 TABLETS BY MOUTH EVERY DAY 180 tablet 3 01/31/20 24 Active tiZANidine (Zanaflex) 4 MG tablet TAKE 1 TABLET BY MOUTH EVERY DAY AT BEDTIME NEEDED 90 tablet 3 03/26/19 25 Active omeprazole (PriLOSEC) [address] capsuleIndcarrillo ions:Gastroeso phageal reflux disease, unspecified whether esophagitis present TAKE 1 CAPSULE BY MOUTH IN THE MORNING. DO NOT CRUSH OR CHEW 90 capsule 1 03/26/19 25 Active buPROPion (Wellbutrin) 75 MG tablet TAKE 1 TABLET BY MOUTH TWICE A DAY 180 tablet 04/07/19 25 Active cetirizine (ZyrTEC) 10 MG tablet Take 1 tablet (10 mg) by mouth Once per day. 30 tablet 3 06/19/19 25 026 Active fluticasone (Flonase) 50 MCG/ACT nasal spray Administer 2 sprays into each nostril Once per day. Shake gently. Before first use, prime pump. After use, clean tip and replace cap. 16 g 3 06/19/19 25 026 Active sodium chloride (Modoc Nasal Surprise) 0.65 % nasal spray Administer 2 sprays into each nostril if needed for congestion. 30 mL 3 06/19/19 25 026 Active pseudoephedrin e (Sudafed) 30 MG tablet Take 2 tablets (60 mg) by mouth every 6 (six) hours if needed for congestion for up to 10 days. 30 tablet 06/19/19 25 Active Enbrel SureClick 50 MG/ML injection 04/30/19 25 Active methotrexate 2.5 MG tablet TAKE 4 TABLETS BY MOUTH WEEKLY 04/11/19 23 025 Discontinued(Ct d list cleanup (will not trigger notification to Pharmacy)) amoxicillin-cl avulanate (Augmentin) 875-125 MG tablet Take 1 tablet by mouth 2 times daily for 5 days. 10 tablet 06/19/19 25 025 Discontinued(Re order (will not trigger notification to Pharmacy)) cetirizine (ZyrTEC) 10 MG tablet Take 1 tablet (10 mg) by mouth Once per day. 30 tablet 3 06/19/19 25 025 Discontinued(Re order (will not trigger notification to Pharmacy)) fluticasone (Flonase) 50 MCG/ACT nasal spray Administer 2 sprays into each nostril Once per day. Shake gently. Before first use, prime pump. After use, clean tip and replace cap. 16 g 3 06/19/19 25 025 Discontinued(Re order (will not trigger notification to Pharmacy)) sodium chloride (Modoc Nasal Surprise) 0.65 % nasal spray Administer 2 sprays into each nostril if needed for congestion. 30 mL 3 06/19/19 25 025 Discontinued(Re order (will not trigger notification to Pharmacy)) pseudoephedrin e (Sudafed) 30 MG tablet Take 2 tablets (60 mg) by mouth every 6 (six) hours if needed for congestion for up to 10 days. 30 tablet 06/19/19 25 025 Discontinued(Re order (will not trigger notification to Pharmacy)) amoxicillin-cl avulanate (Augmentin) 875-125 MG tablet Take 1 tablet by mouth 2 times daily for 5 days. 10 tablet 06/19/19 25 025 Active Problems Problem Noted Date Diagnosed Date [...] will continue to engage in Op therapy. [facility] provider will add Wellbutrin 75 mg to medication regimen. At this time Nadira Garcia meets criteria for Visit Diagnoses: Problem List Items Addressed This Visit Other MDD (major depressive disorder) Patient ready to address current needs Yes Strengths include: ability to request additional support for MH. Nadira is in the action stage. PLAN: 1. Follow up with [facility]: Not recommended for follow-up 2. Patient goal is decrease depressive symptoms 3. Behavioral Recommendations a. Comply with new medication regimen b. Continue to engage in weekly therapy c. Utilize coping skills provided d. May reach out to [facility] for additional support, as needed Encounters Date Type Department Care Team Description 07/13/2024 Orders Only GENERIC EXTERNAL DATA DEPARTMENT Provider, Generic External Data 06/18/2024 9:40 AM EDT Office Visit [facility] [address] [place] [phone] Barbara Moctezuma DO Acute non-recurrent sinusitis, unspecified location (Primary Dx); Acute URI 06/18/2024 Refill [facility] [address] [place] [phone] Barbara Moctezuma DO 06/18/2024 Refill [facility] [address] [address] Barbara Moctezuma DO 04/22/2024 Orders Only GENERIC EXTERNAL DATA DEPARTMENT Provider, Generic External Data from Last 3 Months Immunizations Name Administration [...] Sign Reading Time Taken Comments Blood Pressure 116/64 06/18/2024 10:17 AM EDT Pulse 80 06/18/2024 10:17 AM EDT Temperature 36.6 ??C (97.9 ??F) 06/18/2024 9:35 AM ED T Respiratory Rate 17 06/18/2024 9:35 AM EDT Oxygen Saturation 95% 06/18/2024 9:35 AM EDT Inhaled Oxygen Concentration - - Weight 76.7 kg (169 lb) 02/19/2023 8:45 AM EST Height 157.5 cm (5' 2 ) 02/19/2023 8:45 AM EST Body Mass Index 30.91 02/19/2023 8:45 AM EST Plan of Treatment Upcoming Encounters Date Type Department Care Team (Late st Contact Info) Description 09/09/2024 10:00 AM EDT Office Visit [facility] OPTOMETRY [address] [place] [address] Maximino, Comfort, OD [address] [place] [address] Health Maintenance Due Date Last Done Comments CT Colonography 1959 Colonoscopy 1959 Colorectal Cancer Screening 1959 FIT DNA/Cologuard 1959 FIT 1959 FOBT 1959 HIV Screening 1959 SDOH Screening 1959 Sigmoidoscopy 1959 Alcohol/Substance Use Screening 1971 Pap Smear 12/30/1980 Cervical Cancer Screening 12/30/1989 HPV/Cotest 12/30/1989 Mammogram 1999 Pneumococcal Vaccine: 50+ Years (1 of 1 - PCV) 12/30/2009 Depression Screening 02/20/2024 02/19/2023, 02/20/20 23 Tobacco Screening 06/18/2025 06/18/2024 DTaP/Tdap/Td Vaccines (3 - Td or Tdap) 02/10/2031 02/10/2021, 04/06/2011 RSV Patients and Patients Aged 60 years or older (1 - 1-dose 75+ series) 12/30/2034 Zoster Vaccines Completed 03/21/2022, 01/15/2022 COVID-19 Vaccine Completed 2023, 03/2020, 07/26/2020 Influenza Vaccine Completed 2023, , 02/10/2021, Additional history exists Hepatitis C Screening Completed 07/13/2024 HIB Vaccines Aged Out No longer eligi [...] PANEL, GENERAL Routine 07/13/2024 9:56 AM EDT SED RATE BY MODIFIED WESTERGREN Routine 07/13/2024 9:56 AM EDT C-REACTIVE PROTEIN Routine 07/13/2024 9: 56 AM EDT COMPREHENSIVE METABOLIC PANEL Routine 07/13/2024 9:56 AM EDT CBC WITH AUTO DIFFERENTIAL Routine 07/13/2024 9:56 AM EDT POCT INFLUENZA B (ID NOW RAPID MOLECULAR) Routine 06/18/2024 9:54 AM EDT Acute URI POCT INFLUENZA A (ID NOW RAPID MOLECULAR) Routine 06/18/2024 9:54 AM EDT Acute URI POCT RAPID COVID ANTIGEN Routine 06/18/2024 9:54 AM EDT Acute URI PTH, INTACT WITHOUT CALCIUM Routine 04/22/2024 2:04 PM EST ALBUMIN Routine 04/22/2024 2:04 PM EST CALCIUM Routine 04/22/2024 2:04 PM EST from Last 3 Months Results * T-SPOT??.TB (07/13/2024 9:56 AM EDT) [facility] T Spot TB Negative Negative [facility] Comment:A negative test resu lt [...] as aquantitative test. TS PANEL A 0 [facility] TS PANEL B 0 [facility] Negative Control Passed [facility] Positive Control Passed [facility] Comment:For additional infor dave, please refer tohttp://education.Xplenty/faq/WZW558(This link is being provided for informational/educational purposes only.)THIS TEST WAS PERFORMED AT:[employer] [id number] [place] [id number] HE MD,PHD 07/13/2024 9:56 AM EDT 07/13/2024 9:56 AM EDT us Generic External Data Provider LAB BLOOD ORDERAB LES Final Result Performing Organization Address [facility] Co de Phone Number [facility] [address] [place] [phone] * Hepatitis Panel, General (07/13/2024 9:56 AM EDT) Hepatitis A IgM Nonreactive Nonreactive [facility] Comment:IgM antibodies to PETERS V not detected; does not exclude earlyacute or recovered HAV infection. ~Hepatitis B Surface Antibody NONREACTIVE Nonreactive [facility] Comment:Nonreactive: < 8.00 mIU/mL Hepatitis B Core Antibody Nonreactive Nonreactive [facility] Hepatitis C Antibody Nonreactive Nonreactive [facility] Comment:Antibodies to HCV no t detected; does not exclude early acuteHCV infection. Hepatitis B Surface Ag Negative Negative [facility] 07/13/2024 9:56 AM EDT 07/13/2024 9:56 AM EDT Generic External Data Provider LAB BLOOD ORDERAB LES Final Result Performing Organization Address [facility] Co de Phone Number [facility] [address] [place] [phone] * (ABNORMAL) CBC auto differential (07/13/2024 9:56 AM EDT) White Blood Count 7.7 4.8 - 10.8 X10*3/uL [facility] Red Blood Count 4.33 4.20 - 5.50 X10*6/uL [facility] Hemoglobin 11.6(L) 12.0 - 16.0 g/dl [facility] Hematocrit 37.9 37.0 - 47.0 % [facility] Mean Corpuscular Volume 87.5 80.0 - 98.0 fL [facility] Mean Corpuscular Hemoglobin 26.8(L) 27.0 - 33.0 pg [facility] Mean Corpuscular HGB Conc 30.6(L) 31.0 - 35.0 g/dl [facility] Red Cell Distribution Width 14.7 11.0 - 16.0 % [facility] Platelet Count 213 160 - 400 X10*3/uL [facility] Mean Platelet Volume 11.0 9.4 - 12.3 fL [facility] Neutrophils Percent Auto 65.3 45 - 73 % [facility] Imm Gran Pct Auto 0.4 0.0 - 0.4 % [facility] Lymphocytes Percent Auto 26.4 20 - 40 % [facility] Monocytes Percent Auto 5.6 2 - 11 % [facility] Eosinophils Percent Auto 1.8 0 - 4 % [facility] Basophils Percent Auto 0.5 0 - 2 % [facility] NRBC Pct Auto 0.0 0.0 - 0.2 /100WBC [facility] Neutrophils Absolute Auto 5.1 2.0 - 8.3 x10*3/uL [facility] Imm Gran Abs Auto 0.03 0.00 - 0.03 X10*3/uL [facility] Lymphocytes Absolute Auto 2.0 1.2 - 4.9 X10*3/uL [facility] Monocytes Absolute Auto 0.4 0.1 - 1.2 X10*3/uL [facility] Eosinophils Absolute Auto 0.1 0.0 - 0.4 X10*3/uL [facility] Basophils Absolute Auto 0.0 0.0 - 0.2 X10*3/uL [facility] NRBC Abs Auto 0.000 0.0 - 0.012 X10*3/uL [facility] 07/13/2024 9:56 AM EDT 07/13/2024 9:56 AM EDT Generic External Data Provider LAB BLOOD ORDERAB LES Final Result Performing Organization Address [facility] Co de Phone Number [facility] [address] [place] [phone] * Sed Rate by Modified Yahir (07/13/2024 9:56 AM EDT) Pathologist [facility] Erythrocyte Sedimentation Rate 16 0 - 20 MM/HR [facility] Comment:Patients with polycy themia and many hemoglobin abnormalitiesmay have depressed sed rates whereas patients with anemiamay have elevated sed rates. 07/13/2024 9:56 AM EDT 07/13/2024 9:56 AM EDT Generic External Data Provider LAB BLOOD ORDERAB LES Final Result Performing Organization Address [facility] Co de Phone Number [facility] [address] [place] [phone] * C-reactive Protein (07/13/2024 9:56 AM EDT) Pathologist [facility] C Reactive Protein 0.28 < or = 0.50 mg/dL [facility] 07/13/2024 9:56 AM EDT 07/13/2024 9:56 AM EDT Generic External Data Provider LAB BLOOD ORDERAB LES Final Result Performing Organization Address [facility] Co de Phone Number [facility] [address] [place] [phone] * (ABNORMAL) Comprehensive Metabolic Panel (07/13/2024 9:56 AM EDT) Sodium 142 135 - 145 mmol/L [facility] Potassium 4.7 3.3 - 5.1 mmol/L [facility] Chloride 105 96 - 108 mmol/L [facility] Carbon Dioxide 30(H) 22 - 29 mmol/L [facility] Anion Gap 12 12 - 20 [facility] Urea Nitrogen (BUN) 12 9 - 16 mg/dL [facility] Creatinine, Serum 0.78 0.5 - 1.4 mg/dL [facility] Estimated Glomerular Filt Rate >60 [facility] Comment:Chronic Kidney Disea se: Estimated GFR < 60 mL/min/1.55m4Lniwru Kidney Disease: Estimated GFR < 15 mL/min/1.73m2 Glucose 95 60 - 115 mg/dL [facility] Calcium 9.5 8.4 - 10.2 mg/dL [facility] Bilirubin, Total 0.2 0.0 - 1.0 mg/dL [facility] Aspartate Amino Transferase 31 5 - 31 U/L [facility] Alanine Aminotransferase 22 0 - 31 U/L [facility] Total Protein 7.6 6.5 - 8.0 g/dL [facility] Albumin Level 4.3 3.5 - 5.0 g/dL [facility] Alkaline Phosphatase 88 39 - 117 U/L [facility] 07/13/2024 9:56 AM EDT 07/13/2024 9:56 AM EDT us Generic External Data Provider LAB BLOOD ORDERAB LES Final Result [facility] [address] [place] [phone] * Influenza B (ID NOW Rapid Molecular) (06/18/2024 9:54 AM EDT) Influenza B Negative Negative, Indeterminate [facility] Swab 06/18/2024 9:54 AM EDT us Barbara Moctezuma DO POINT OF CARE TEST ENTER/STEFANIE T ORDERABLES Final Result Performing Organization Address [facility] Co de Phone Number [facility] [address] [place] [phone] * Influenza A (ID NOW Rapid Molecular) (06/18/2024 9:54 AM EDT) Influenza A Negative Negative, Indeterminate [facility] Swab 06/18/2024 9:54 AM EDT Barbara Moctezuma DO POINT OF CARE TEST ENTER/STEFANIE T ORDERABLES Final Result Performing Organization Address [facility] de Phone Number [facility] [address] [place] [phone] * POCT Rapid COVID Ag (06/18/2024 9:54 AM EDT) Rapid COVID Ag Negative [facility] Swab 06/18/2024 9:54 AM EDT us Barbara Moctezuma DO POINT OF CARE TEST ENTER/STEFANIE T ORDERABLES Final Result Performing Organization Address [facility] de Phone Number [facility] [address] [place] [phone] * (ABNORMAL) PTH, Intact Without Calcium (04/22/2024 2:04 PM EST) Parathyroid Hormone, Intact 133.2(H) 8.7 - 77.1 pg/mL [facility] 04/22/2024 2:04 PM EST 04/22/2024 2:04 PM EST us Generic External Data Provider LAB BLOOD ORDERAB LES Final Result Performing Organization Address [facility] Co de Phone Number [facility] [address] [place] [phone] * Calcium (04/22/2024 2:04 PM EST) Calcium 9.3 8.4 - 10.2 mg/dL [facility] 04/22/2024 2:04 PM EST 04/22/2024 2:04 PM EST us Generic External Data Provider LAB BLOOD ORDERAB LES Final Result Performing Organization Address [facility]/ZIP Co de Phone Number [facility] [address] [place] [phone] * Albumin (04/22/2024 2:04 PM EST) Albumin Level 4.0 3.5 - 5.0 g/dL [facility] 04/22/2024 2:04 PM EST 04/22/2024 2:04 PM EST Generic External Data Provider LAB BLOOD ORDERAB LES Final Result Performing Organization Address [facility] de Phone Number [facility] [address] [place] [phone] from Last 3 Months Insurance [facility] [id number] [place] [address] CARE Care Teams Limerock Tower Loader Relationship Specialty Start Date End Date Karlie Higgins MD [address] [place] [address] [place] [address] PCP - General Family Medicine 01/12/22
--- OUTSIDE RECORDS SUMMARY | 2024-07-17 11:03 | XMS_ITS | Encounter Summary ---
Author Organization [employer] Address [address] [place] [address] [address] [place] [address] Care Team Providers Care Director Of Payroll Name Role Phone Karlie Higgins MD Primary Care Provider Reason for Visit * Reason Onset Date Comments Reschedule 02/28/2023 Encounter Details Date Type Department Care Team ([facility] st Contact Info) Description 02/28/2023 Telephone [facility] MEDICINE [address] [place] [address] Karlie Higgins MD [address] [place] [address] Reschedule Social History Tobacco Use Types Packs/Day [...] Tc from pt requesting r/s 03/06/2023 appt, abstract writer attempted to schedule, no availability at this moment for February, pt is also requesting a morning appt. documented in this encounter Plan of Treatment Upcoming Encounters Date Type Department Care Team (Late st Contact Info) Description 09/09/2024 10:00 AM EDT Office Visit [facility] OPTOMETRY [address] [place], [place] [phone] Maximino, Megan, OD [address] [place] [address] documented as of this encounter Visit Diagnoses Not on filedocumented in this encounter Additional Health Concerns Assessment Noted Time PHQ-9 Depression Total Score: 7 02/20/20 23 10:08 AM EST documented as of this encounter Care Teams Director Of Payroll Relationship Specialty Start Date End Date Karlie Higgins MD [address] [place] [address] PCP - General Family Medicine 01/12/22 documented as of this encounter
== END 2024-07-17 11:14 | disposition home or self-care (01) ==
LOC: HO.RHE 10:30
PROVIDERS: PCP General Practice; Visit Provider Student in an Organized Health Care Education/Training Program
DX: M05.79 Rheumatoid arthritis with rheumatoid factor of multiple sites without organ or systems involvement (principal); Z51.81 Encounter for therapeutic drug level monitoring; Z79.620 Long term (current) use of immunosuppressive biologic
CPT/HCPCS: 99214; G2211

== ENCOUNTER → 2024-07-17 10:29 | Outpatient (BNVA) | payer OTHER, SELFPAY | PROVIDERS: PCP General Practice; Visit Provider Student in an Organized Health Care Education/Training Program | DX: M05.9 Rheumatoid arthritis with rheumatoid factor, unspecified (principal); Z51.81 Encounter for therapeutic drug level monitoring; Z79.620 Long term (current) use of immunosuppressive biologic | CPT/HCPCS: 99212 ==